=== PATIENT | male | born 1985 | race Caucasian/White ===

== ENCOUNTER 2024-10-31 07:10 | Observation (INO) | payer OTHER, SELFPAY ==
--- NOTE | ~2024-10-31 | XR_ITS ---
Supine and upright views of the abdomen Clinical history: Kidney stone Findings: Bowel gas pattern is nonspecific. No evidence for obstruction or free air. Possible 4 mm mi d right ureteral stone. Osseous structures are intact. Impression: Possible 4 mm mid right ureteral stone. Reviewed, dictated and finalized at [facility]. Impression: Possible 4 mm mid right ureteral stone.
--- NOTE | ~2024-10-31 | CT_ITS ---
Non-contrast CT scan of the Abdomen and Pelvis Clinical indication: Right flank pain Technique: 2.5 mm axial scans were obtained through the abdomen and pelvis without intravenous or or al contrast. Dose reduction technique was used on this scan by utilizing automated exposure control a nd iterative reconstruction technique. The dose-length product (DLP) was 194.05 mGy-cm. Findings: Images through the lung bases reveal no abnormalities. There is a 4.5 mm stone at the proximal right ureter (axial image 111), with mild right hydroureteron ephrosis to this level. No other stones are identified. No left hydronephrosis. The liver, spleen, pancreas, gallbladder, and adrenals appear normal. There is no aortic aneurysm. There is no evidence of bowel obstruction. Fat infiltration in the submucosal layer throughout the descending and sigmoid colon suggests sequela of chronic inflammation. Prior partial right colectomy noted. No bowel obstruction. Images through the pelvis were performed. There is no evidence of ascites or lymphadenopathy. Urinary bladder unremarkable. No pelvic mass seen. No ascites. Chronic T11 compression deformity noted. Impression: 4.5 mm proximal right ureteral stone with mild right hydronephrosis this level. Findings suggestive of chronic inflammatory change in the descending and sigmoid colon with fat infil tration of the submucosal layer. Chronic T11 compression deformity. Reviewed, dictated and finalized at [facility]. Impression: 4.5 mm proximal right ureteral stone with mild right hydronephrosis this level. Findings suggestive of chronic inflammatory change in the descending and sigmoi d colon with fat infiltration of the submucosal layer. Chronic T11 compression deformity.
--- NOTE | ~2024-10-31 | XR_ITS ---
EXAMINATION: XR retrograde pyelo w/stent RT DATE: 11/01/2024 13:24 INDICATION: Right internal ureteral stent placement TECHNIQUE: Fluoroscopic images from a right internal ureteral stent placement are submitted for amairani reich 119 seconds of fluoroscopy time. FINDINGS: There is a right double-J internal ureteral stent projecting in expected position, with proximal Hamilton loop at the level of the renal pelvis and distal loop in the pelvis within the bladder lumen. IMPRESSION: 1. Right internal ureteral stent placement. Please refer to real-time procedural findings for detai ls. Reviewed, dictated and finalized at location [facility]. IMPRESSION: 1. Right internal ureteral stent placement. Please refer to real-time procedu ral findings for details.
--- OUTSIDE RECORDS SUMMARY | 2024-10-31 07:13 | XMS_ITS | Clinical Summary ---
Author Organization [facility] Address [address] [place] [address] Care Team Providers Care Student Life Coordinator Name Role Phone None, Provider MD Primary Care Provider Unavaila ble Allergies Active Allergy Reactions Criticality Noted Date Comments Nsaids Unknown 08/19/2014 H/o Crohn's Medications STELARA 90 MG/ML injection every 28 days. 1 Active azaTHIOprine 50 MG tablet Take 2 tablets by mouth daily. 1 Active ondansetron 8 MG disintegrating tablet Take 1 tablet by mouth as needed. 1 Active Active Problems Problem Noted Date Diagnosed Date Crohn's disease ([facility]) 08/19/2014 Resolved Problems Problem Noted Date Diagnosed Date Resolved Date Screening for thyroid disorder 08/19/2014 05/10/2021 Immunizations Immunization Administration Dates Next Due MODERNA COVID-19 (12+) MRNA, LNP-S, PF, 100 MCG/ 0.5 ML DOSE 07/27/2020,06/30/2020 Social History Tobacco Use Types Packs/Day Years Used Date Smoking Tobacco: Never Smokeless Tobacco: Never Alcohol Use Standard Drinks/Week Comments Not Currently 0 (1 standard drink = 0.6 oz pur e alcohol) Sex and Gender Information Value Date Recorded Sex Assigned at Not on file Legal Sex Male 6:28 PM CDT Gender Identity Not on file Sexual Orientation Not on file Last Filed Vital Signs Vital Sign Reading Time Taken Comments Blood Pressure 118/88 05/14/2021 8:20 AM SUPPLY CHAIN DIRECTOR Pulse 96 05/14/2021 8:20 AM SUPPLY CHAIN DIRECTOR Temperature 36.2 C (97.2 F) 05/14/2021 8:20 AM SUPPLY CHAIN DIRECTOR Respiratory Rate 18 05/14/2021 8:20 AM SUPPLY CHAIN DIRECTOR Oxygen Saturation 98% 05/14/2021 8:20 AM SUPPLY CHAIN DIRECTOR Inhaled Oxygen Concentration - - Weight 66.6 kg (146 lb 14.4 oz) 05/14/2021 8:20 AM SUPPLY CHAIN DIRECTOR Height 177.2 cm (5' 9.75 ) 05/14/2021 8:20 AM CS T Body Mass Index 21.23 05/14/2021 8:20 AM SUPPLY CHAIN DIRECTOR Plan of Treatment Health Maintenance Due Date Last Done Comments Annual Physical 1989 Hepatitis C 2004 DTaP, Tdap and Td Vaccines ( 1 - Tdap) 2005 Hepatitis B Vaccines (2 of 3 - 19+ 3-dose series) 12/14/2009 11/16/2009 COVID-19 Vaccine (3 - Modern a risk series) 08/24/2020 07/27/2020, 06/30/2020 Pneumococcal Vaccine: Pediatrics (0 to 5 Years) and At-Risk Patients (6 to 49 Years) (4 of 4 - PCV20 or PCV21) 2036 01/02/2019, 07/16/2015, 07/31/2012 HPV Vaccines Aged Out No longer eligi ble based on patient's age to complete this topic Meningococcal B Vaccine Aged Out No l onger eligible based on patient's age to complete this topic Meningococcal Vaccine Aged Out No amber jd eligible based on patient's age to complete this topic RSV Immunizations Under 20 Months Aged Out No longer eligible b ased on patient's age to complete this topic Care Teams Student Life Coordinator Relationship Specialty Start Date End Date None, Provider, PCP - General 05/07/21
[2024-10-31 07:18] VITALS: BP 136/82; PULSE 78; RESP 18; TEMP 37; O2SAT 100
--- NOTE | 2024-10-31 07:21 | ED.GENADULT ---
HPI - General Adult General Chief complaint: Abdominal Pain Stated complaint: right flank pain Time Seen by Provider: 10/31/24 07:14 History of Present Illness HPI narrative: Patient 39-year-old gentleman presents emergency department chief complaint of right flank pain patient reports that he started having pain yesterday it subsided and then came back this morning the patient reports starts in the right flank area radiates to his right groin the patient states that he is unable to get comfortable in any position reports that he feels nauseated and reports that he feels very sweaty patient states that he has prior history of Crohn's but this feels different Related Data Allergies Allergy/AdvReac Type Severity Reaction Status Date / Time ibuprofen Allergy Unknown Unknown Verified 10/31/24 07:36 oxycodone AdvReac Unknown Unknown Verified 10/31/24 07:37 Review of Systems Review of Systems: A 10 system review of systems was completed on the patient and is negative except for what is stated in the HPI. Nursing and ancillary documentation was reviewed. Exam Narrative: GENERAL: Well-appearing, well-nourished, and in moderate acute pain distress. HEAD: Normocephalic, atraumatic. EYES: PERRLA and EOMI. ENT: Nares clear, no rhinorrhea or epistaxis. Mucous membranes moist. NECK: Supple. CHEST: Clear to auscultation. No respiratory distress. HEART: Regular rate and rhythm. No murmur heard. Normal peripheral pulses. ABDOMEN: Soft, nontender, nondistended, normal active bowel sounds. EXTREMITIES: Normal range of motion. No edema. SKIN: Warm, dry, no rash. NEURO: No focal deficits. Alert and oriented x3. PSYCH: Normal mood and affect. Course Vital Signs Vital signs: Vital Signs Temperature 37.0 C 10/31/24 07:18 Pulse Rate 78 10/31/24 07:18 Respiratory Rate 18 10/31/24 07:18 Blood Pressure 136/82 10/31/24 07:18 Pulse Oximetry 100 10/31/24 07:18 Oxygen Delivery Room Air 10/31/24 07:18 Temperature 37.0 C 10/31/24 07:18 Pulse Rate 75 10/31/24 09:10 Respiratory Rate 18 10/31/24 09:10 Blood Pressure 132/86 10/31/24 09:10 Pulse Oximetry 100 10/31/24 09:10 Oxygen Delivery Room Air 10/31/24 07:18 Medical Decision Making [facility] Narrative Medical decision making narrative: Differential diagnosis includes ureterolithiasis, UTI, CT scan showed evidence of 4.5 mm proximal stone on the right Urinalysis showed no evidence UTI renal function was normal The patient is require multiple doses of IV pain medication to control his pain case was discussed with Urology who will see the patient in the ER Vital Signs Vital Signs: Vital Signs Temperature 37.0 C 10/31/24 07:18 Pulse Rate 78 10/31/24 07:18 Respiratory Rate 18 10/31/24 07:18 Blood Pressure 136/82 10/31/24 07:18 Pulse Oximetry 100 10/31/24 07:18 Oxygen Delivery Room Air 10/31/24 07:18 Temperature 37.0 C 10/31/24 07:18 Pulse Rate 75 10/31/24 09:10 Respiratory Rate 18 10/31/24 09:10 Blood Pressure 132/86 10/31/24 09:10 Pulse Oximetry 100 10/31/24 09:10 Oxygen Delivery Room Air 10/31/24 07:18 Lab Data 10/31/24 07:28 10/31/24 07:28 Labs: Lab Results 10/31/24 10/31/24 Range/Units 07:28 08:52 WBC 8.1 (4.5-10.0) K/mm3 RBC 5.46 (4.6-6.20) M/mm3 Hgb 15.4 (14.0-18.0) g/dL Hct 47.0 (42.0-52.0) % MCV 86.1 (80-100) fl MCH 28.2 (26-34) pg MCHC 32.8 (32-36) g/dl RDW 13.2 (11.5-14.5) % Plt Count 196 (150-375) k/mm3 MPV 9.8 (7.4-10.4) fl Immature Gran % (Auto) 0.4 (0-0.5) % Neut % (Auto) 70.1 (45.5-73.1) % Lymph % (Auto) 20.7 (18.3-44.2) % Carlisle % (Auto) 6.5 (2.6-8.5) % Eos % (Auto) 1.9 (0-4.4) % Baso % (Auto) 0.4 (0.2-1.2) % Lymph # (Auto) 1.67 (0.9-3.2) K/mm3 Carlisle # (Auto) 0.5 (0.1-0.6) K/mm3 Eos # (Auto) 0.2 (0-0.3) K/mm3 Baso # (Auto) 0.0 (0.0-0.1) K/mm3 Abs Immat Gran (auto) 0.03 (0.00-0.031) K/mm3 Absolute Neuts (auto) 5.7 (1.3-6.7) K/mm3 Absolute Nucleated RBC 0.000 (0.0-0.012) K/mm3 Nucleated RBC % 0.0 (0.0-0.2) % Sodium 141 (137-145) mmol/L Potassium 3.6 (3.4-5.0) mmol/L Chloride 104 (98-107) mmol/L Carbon Dioxide 28 (22-30) mmol/L Anion Gap 9 (4-12) mmol/L BUN 13 (9-20) mg/dL Creatinine 1.01 (0.7-1.3) mg/dL Estim Creat Clear Calc 84 ml/min Estimated GFR > 60 (59 - ) Glucose 112 H (65-110) mg/dL Calcium 9.3 (8.4-10.2) mg/dL Total Bilirubin 0.6 (0.2-1.3) mg/dL AST 21 (17-59) U/L ALT 20 (6-50) U/L Alkaline Phosphatase 73 (38-126) U/L Total Protein 8.0 (6.3-8.2) g/dL Albumin 4.7 (3.5-5.1) g/dL Lipase 295 (23-300) U/L Urine Color Light red H (Yellow) Urine Appearance Cloudy H (Clear) Urine pH 6.0 (5.0-9.0) Ur Specific Sarita 1.030 (1.001-1.035) Urine Protein 3+ H (Negative) mg/dL Urine Glucose (UA) Trace H (Negative) mg/dL Urine Ketones Negative (Negative) mg/dL Ur Blood (Man) 3+ H (Negative) Urine Nitrate Negative (Negative) Urine Bilirubin 1+ H (Negative) Urine Urobilinogen 0.2 (<2.0) mg/dL Leukocyte Esterase Rfl Negative (Negative) YULIYA/UL Urine RBC 11-20 H (0-2) /hpf Urine WBC None seen (0-3) /hpf Ur Squamous Epith Cells Occasional (Few) /hpf Urine Bacteria 1+ H (None) /hpf Discharge Plan Discharge Clinical Impression: Ureterolithiasis Patient Disposition: Still a Patient Condition: Stable Instructions: Antibiotic Form Patient Language: Cymraes Follow-up/Referrals: PHYSICIAN,ANIMAL EVISCERATOR [Non-Staff] - Time of Disposition: 11:05
[2024-10-31] MEDS: SODIUM CHLORIDE 0.9% IV 1,000 ML 999 ML IV CONT (07:32)
--- OUTSIDE RECORDS SUMMARY | 2024-10-31 07:32 | XMS_ITS | Encounter Summary ---
Author Organization [facility] Address [address] [facility] [place] [address] Care Team Providers Care Marketing Information Coordinator Name Role Phone None, Physician Primary Care Provider Unavailabl e Reason for Visit * Reason Onset Date Comments MEDICATION REFILL 01/10/2024 Encounter Details Date Type Department Care Team (Late st Contact Info) Description 01/10/2024 Refill [facility] [place] [address] [place] [address], [place] [address] Adina Ramirez MD [address] [place] [address] [address] [place] [address] MEDICATION REFILL Social History Tobacco Use Types Packs/Day Years Used Date Smoking Tobacco: Never Smokeless Tobacco: Former Chew Quit: 05/26/2018 Alcohol Use Standard Drinks/Week Comments Not Currently 0 (1 standard drink = 0.6 oz pur e alcohol) rarely Sex and Gender Information Value Date Recorded Sex Assigned at Male 08/23/2024 9:06 AM TETRYL NITRATOR OPERATOR Legal Sex Male 1:33 PM CDT Gender Identity Male 08/23/2024 9:06 AM TETRYL NITRATOR OPERATOR Sexual Orientation Straight 08/23/2024 9: 06 AM TETRYL NITRATOR OPERATOR documented as of this encounter Functional Status * Is person deaf or have serious hearing difficulty? Answer Date of Assessment Author No 07/06/2022 1:19 PM Hamida James RN * Is person blind or have serious difficulty seeing? Answer Date of Assessment Author No 07/06/2022 1:19 PM Hamida James RN * Does person have serious difficulty walking/climbing stairs? Answer Date of Assessment Author No 07/06/2022 1:19 PM TETRYL NITRATOR OPERATOR Hamida Gallardo RN * Does person have difficulty dressing/bathing? Answer Date of Assessment Author No 07/06/2022 1:19 PM TETRYL NITRATOR OPERATOR Hamida Gallardo RN * Does person have difficulty doing errands alone? Answer Date of Assessment Author No 07/06/2022 1:19 PM TETRYL NITRATOR OPERATOR Hamida Gallardo RN documented as of this encounter Mental Status * Does person have difficulty concentrating/remembering/making decisions? Answer Entry Date Author No 07/06/2022 1:19 PM TETRYL NITRATOR OPERATOR Hamida Gallardo RN documented in this encounter Plan of Treatment Upcoming Encounters Date Type Department Care Team (Latest Contact Info) Description 04/17/2025 12:30 PM CDT Office Visit [facility] [place] [address] [place] [address] Mike Isaacs MD [address] [place] [phone] 07/02/2025 11:00 AM TETRYL NITRATOR OPERATOR Hospital Encounter [facility] [address] [place] [phone] Mike Isaacs MD [address] [place] [phone] Surgery General 07/02/2025 11:00 AM TETRYL NITRATOR OPERATOR - 07/02/2025 11:45 AM TETRYL NITRATOR OPERATOR Surgery [facility] [address] [place] [phone] Mike Isaacs MD [address] [place] [phone] COLONOSCOPY DIAGNOSTIC Scheduled Procedures Name Priority Associated Diagnoses Date/Ti me COLONOSCOPY DIAGNOSTIC Crohn's disease of both small and large intestine with other complication (HCC) 07/02/2025 11:00 AM TETRYL NITRATOR OPERATOR documented as of this encounter Goals Goal Patient Goal Type Associated Problems Recent Progress Patient-Stated? Author Safety General On track( 025 12:09 PM CDT) Viola Sharp, RN Note: Expected end date: Ongoing Interventions: Your nurse will assess your risk for falls/injury each visit Use appropriate and safe transfer methods Medication Management General On track( 025 12:09 PM CDT) Viola Sharp, RN Note: Expected end date: Ongoing Interventions: Take all medications as prescribed Let your doctor know right away about any changes in your medications documented as of this encounter Visit Diagnoses Not on filedocumented in this encounter Care Teams Marketing Information Coordinator Relationship Specialty Start Date End Date None, Physician [address] [place] [address] PCP - General 03/28/24 documented as of this encounter
--- OUTSIDE RECORDS SUMMARY | 2024-10-31 07:32 | XMS_ITS | Encounter Summary ---
Author Organization [facility] Address [address] [facility] [place] [address] Care Team Providers Care Hub Lead Name Role Phone None, Physician Primary Care Provider Unavailabl e Reason for Visit * Reason Onset Date Comments MEDICATION REFILL 05/25/2023 Encounter Details Date Type Department Care Team (Late st Contact Info) Description 05/25/2023 Refill [facility] [place] [address] [place] [address], [facility] [place] [address] Adina Ramirez MD [address] [place] [address] [address] [place] [address] MEDICATION REFILL Social History Tobacco Use Types Packs/Day Years Used Date Smoking Tobacco: Never Smokeless Tobacco: Former Chew Quit: 05/26/2018 Alcohol Use Standard Drinks/Week Comments No 0 (1 standard drink = 0.6 oz pur e alcohol) Sex and Gender Information Value Date Recorded Sex Assigned at Male 08/23/2024 9:06 AM INTEGRATION ENGINEER Legal Sex Male 1:33 PM CDT Gender Identity Male 08/23/2024 9:06 AM INTEGRATION ENGINEER Sexual Orientation Straight 08/23/2024 9: 06 AM INTEGRATION ENGINEER documented as of this encounter Functional Status [...] of Assessment Author No 07/06/2022 1:19 PM INTEGRATION ENGINEER Hamida Gallardo RN * Does person have difficulty dressing/bathing? Answer Date of Assessment Author No 07/06/2022 1:19 PM INTEGRATION ENGINEER Hamida Gallardo RN * Does person have difficulty doing errands alone? Answer Date of Assessment Author No 07/06/2022 1:19 PM INTEGRATION ENGINEER Hamida Gallardo RN documented as of this encounter Mental Status * Does person have difficulty concentrating/remembering/making decisions? Answer Entry Date Author No 07/06/2022 1:19 PM INTEGRATION ENGINEER Hamida Gallardo RN documented in this encounter Plan of Treatment Upcoming Encounters Date Type Department Care Team (Latest Contact Info) Description 04/17/2025 12:30 PM CDT Office Visit [facility] [place] [address] [place] [address] Mike Isaacs MD [address] [place] [phone] 07/02/2025 11:00 AM INTEGRATION ENGINEER Hospital Encounter [facility] [address] [place] [phone] Mike Isaacs MD [address] [place] [phone] Surgery General 07/02/2025 11:00 AM INTEGRATION ENGINEER - 07/02/2025 11:45 AM INTEGRATION ENGINEER Surgery [facility] [address] [place] [phone] Mike Isaacs MD [address] [place] [phone] COLONOSCOPY DIAGNOSTIC Scheduled Procedures Name Priority Associated Diagnoses Date/Ti me COLONOSCOPY DIAGNOSTIC Crohn's disease of both small and large intestine with other complication (HCC) 07/02/2025 11:00 AM INTEGRATION ENGINEER documented as of this encounter Goals Goal [...] on filedocumented in this encounter Care Teams Hub Lead Relationship Specialty Start Date End Date None, Physician [address] [place] [address] PCP - General 03/28/24 documented as of this encounter
--- OUTSIDE RECORDS SUMMARY | 2024-10-31 07:32 | XMS_ITS | Clinical Summary ---
Author Organization [facility] Address [address] [address] Care Team Providers Care Commercial Drone Software Developer Name Role Phone None, Physician Primary Care Provider Unavailabl e Source Comments [facility],non-owned Affiliates and Associated Physician Practices is amultiple site organization consisting of ambulatory clinics and hospital sitesin [place], [place], [place] and [place]. This disclosure is being madepursuant to the Care Everywhere program and may not contain all information available regarding this patient. Last updated 18.[facility] Allergies Active Allergy Reactions Criticality Noted Date Comments Nsaids GI Discomfort Medium 08/19/2014 H/o Crohn's Medications * Be aware that medications may not be up to date on this document. Alwaysverify current medications with the patient. ondansetron, disintegrating, (ZOFRAN ODT) 4 MG tablet Take 1 (one) tablet by mouth every 6 hours as needed for Nausea/Vomiting Allow tablet to dissolve on the tongue Active [employer] [facility] For disposal of Vitamin B12 syringes 1 Each 1 022 Active hyoscyamine (Levsin SL) 0.125 MG sublingual tablet Dissolve 1 (one) tablet under the tongue every 4 hours as needed for Spasms 60 tablet 5 024 Active risankizumab-rzaa (Skyrizi) 360 MG/2.4ML SOCTIndications:Croh n's disease with complication, unspecified gastrointestinal tract location (HCC) Inject 2.4 mL subcutaneously Every 8 Weeks 2.4 mL 6 025 Active vitamin D3 (Cholecalciferol) 25 MCG (1000 UNITS) tablet Take 1 (one) tablet by mouth once daily Active colestipol (Colestid) 1 GM tabletIndications:Di arrhea, unspecified type Take 1 (one) tablet by mouth once daily as needed 60 tablet 025 2024 Active multivitamin daily tablet Take 1 (one) tablet by mouth daily with food 2024 Disconti nued(Lis t Clean-Up ) ustekinumab (Stelara) 90 MG/ML prefilled syringeIndications:C rohn's disease with complication, unspecified gastrointestinal tract location (HCC) INJECT 1 SYRINGE SUBCUTANEOUSLY EVERY 4 WEEKS 1 mL 11 024 2024 Disconti nued(Lis t Clean-Up ) azaTHIOprine (Imuran) 50 MG tabletIndications:En counter for monitoring 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),Immunosuppress ion (HCC) Take 2 (two) tablets by mouth once daily 180 tablet 3 024 2024 Disconti nued(Lis t Clean-Up ) colestipol (Colestid) 1 GM tabletIndications:Di arrhea, unspecified type Take 1 (one) tablet by mouth once daily 90 tablet 2 024 2024 Disconti nued(Reo rder) Active Problems Problem Noted Date Diagnosed Date Crohn's disease 08/19/2014 Crohn's disease of ileum 01/02/2012 Encounters Date Type Department Care Team Description 10/25/2024 Orders Only [facility]fusion [address] [place] [phone] Mike Isaacs MD 10/10/2024 12:30 PM CDT Office Visit [facility] - GI [address] [facility], [facility] [place] [address] Mike Isaacs MD Crohn's disease of both small and large intestine with other complication (HCC) (Primary Dx); Diarrhea, unspecified type 10/10/2024 Patient Outreach [facility] [address] [place] [address] Julia Garcia, RN 10/10/2024 Travel 09/20/2024 9:15 AM CDT Procedure visit [facility] - Infusion [address] [place] [phone] Crohn's disease of both small and large intestine without complication 09/20/2024 Travel 08/23/2024 9:00 AM FIELD ARTILLERY CREWMEMBER Procedure visit [facility] - Infusion [address] [place] [phone] Crohn's disease of both small and large intestine without complication 08/23/2024 Orders Only [facility] - GI [address] [place] [phone] Julia Velasquez, OLIVIA-ROLL FORMER 08/15/2024 Telephone [facility] - GI [address] [place] [phone] Marielle Shields, institute director 08/09/2024 Telephone [facility] [address] [place] [phone] Liu Gil, academic department chair Issue 08/08/2024 Refill [facility] - GI [address] [place] [phone] Mike Isaacs MD MEDICATION REFILL 08/05/2024 Orders Only [facility] - GI [address] [place] [phone] Adina Ramirez MD 08/05/2024 Orders Only [facility] - GI [address] [place] [phone] Adina Ramirez MD 08/05/2024 Orders Only [facility] [address] [place] [address] Elsi Cleveland, MISSILE TECHNICIAN-ROLL FORMER from Last 3 Months Immunizations Immunization Administration Dates Next Due COVID PFIZER 12+YR 30MCG/0.3mL 05/17/2024,2022 COVID PFIZER BIVALENT 12Y+ 30mcg/0.3ML 03/08/2022 Covid Moderna primary monova lent 12+ yr 0.5mL 11/14/2021,06/12/2021 FLU VACCINE TRI IIV3 SPLIT P F IM (FLUVIRIN) 07/31/2012 HEP B VACCINE, ADULT 3 DOSE 11/16/2009 HEP B VACCINE, PED/ADOL 08/21/1996 INFLUENZA VACCINE, CELL CULT URE, TRIV. (FLUCELVAX TRIVALENT; 6MO+), 0.5 ML (CCIIV3) 03/27/2024 INFLUENZA VACCINE, QUADR. (A FLURIA, FLUZONE QUADRIVALENT; 6MO+) (IIV4) 03/08/2019 INFLUENZA VACCINE, QUADR. (F LUZONE; FLULAVAL; FLUARIX; AFLURIA QUADRIVALENT; 6MO+), 0.5 ML (IIV4) 03/10/2023,03/08/2022,03/27/2021,2017 PNEUMOCOCCAL PPSV23 01/02/2019,07/31/2012 Pneumococcal Pcv13 Conj 07/16/2015 TD (AGE 8-ADULT) 01/26/2001 Family History Relation Name Status Comments Father Alive Maternal Grandfather Maternal Grandmother Mother Alive Paternal Grandfather Paternal Grandmother Social History Tobacco Use Types Packs/Day Years Used Date Smoking Tobacco: Never Passive Smoke Exposure: Never Smokeless Tobacco: Former Chew Quit: 05/26/2018 Tobacco Cessation:Counseling Given: No Alcohol Use Standard Drinks/Week Comments Not Currently 0 (1 standard drink = 0.6 oz pur e alcohol) AUDIT-C Answer Date Recorded Q1: How often do you have a drink containing alcohol? Monthly or less 08/23/2024 Q2: How many drinks containi ng alcohol do you have on a typical day when you are drinking? Patient does not drink Q3: How often do you have si x or more drinks on one occasion? Never 08/23/2024 Overall Financial Resource Strain (CARDIA) Answe r Date Recorded How hard is it for you to pa y for the very basics like food, housing, medical care, and heating? Not very hard 08/23/2024 PHQ-2 Answer Date Recorded Patient Health Questionnaire-2 Score 0 08/23/2024 [facility] [place] [facility] - Occupational Stress Questionnaire Answer Date Recorded Do you feel stress - tense, restless, nervous, or anxious, or unable to sleep at night because your mind is troubled all the time - these days? Not at all 08/23/2024 Hunger Vital Sign Answer Date Recorded Within the past 12 months, y ou worried that your food would run out before you got the money to buy more. Never true 08/23/19 25 Within the past 12 months, t he food you bought just didn't last and you didn't have money to get more. Never true 08/23/2024 PRAPARE - Transportation Answer Date Re corded In the past 12 months, has l ack of transportation kept you from medical appointments or from getting medications? No 07/28 In the past 12 months, has l ack of transportation kept you from meetings, work, or from getting things needed for daily living? No 08/23/2024 Housing Stability Vital Sign Answer [place] e Recorded In the last 12 months, was t here a time when you were not able to pay the mortgage or rent on time? No 08/23/2024 In the past 12 months, how m any times have you moved where you were living? 1 08/23/2024 At any time in the past 12 m [facility], were you homeless or living in a alf (including now)? No 08/23/2024 Education Answer Date Recorded What is the highest level of school you have completed or the highest degree you have received? 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, [place]) 08/23/2024 Sex and Gender Information Value Date Recorded Sex Assigned at Male 08/23/2024 9:06 AM FIELD ARTILLERY CREWMEMBER Legal Sex Male 1:33 PM CDT Gender Identity Male 08/23/2024 9:06 AM FIELD ARTILLERY CREWMEMBER Sexual Orientation Straight 08/23/2024 9: 06 AM FIELD ARTILLERY CREWMEMBER Last Filed Vital Signs Vital Sign Reading Time Taken Comments Blood Pressure 132/89 10/10/2024 12:18 PM CDT Pulse 85 10/10/2024 12:18 PM CDT Temperature 36.6 C (97.8 F) 10/10/2024 12:18 PM CDT Respiratory Rate 14 09/20/2024 8:23 AM CDT Oxygen Saturation 100% 10/10/2024 12:18 PM CDT Inhaled Oxygen Concentration - - Weight 68.6 kg (151 lb 3.2 oz) 10/10/2024 12:18 PM CDT Height 175.3 cm (5' 9 ) 10/10/2024 12:18 PM CDT Body Mass Index 22.33 10/10/2024 12:18 PM CDT Plan of Treatment Upcoming Encounters Date Type Department Care Team (Latest Contact Info) Description 04/17/2025 12:30 PM CDT Office Visit [facility] - GI [address] [place] [address] Mike Isaacs MD [address] [place] [phone] 07/02/2025 11:00 AM FIELD ARTILLERY CREWMEMBER Hospital Encounter [facility] [address] [place] [phone] Mike Isaacs MD [address] [place] [phone] Surgery General 07/02/2025 11:00 AM FIELD ARTILLERY CREWMEMBER - 07/02/2025 11:45 AM FIELD ARTILLERY CREWMEMBER Surgery [facility] [address] [place] [phone] Mike Isaacs MD [address] [place] [phone] COLONOSCOPY DIAGNOSTIC Scheduled Procedures Name Priority Associated Diagnoses Date/Ti me COLONOSCOPY DIAGNOSTIC Crohn's disease of both small and large intestine with other complication (HCC) 07/02/2025 11:00 AM FIELD ARTILLERY CREWMEMBER Health Maintenance Due Date Last Done Comments HIV SCREENING 2001 HEPATITIS C SCREENING 04/18/2004 ZOSTER VACCINE (1 of 2) 2005 HEPATITIS B VACCINE (3 of 3 - 3-dose series) 01/11/2010 11/16/2009, 08/21/1996 DTAP/TDAP/TD VACCINES (2 - Td or Tdap) 01/26/2011 01/26/2001 COVID-19 VACCINE (8 - Moderna risk season) 2024 05/17/2024, 04/14/2023, 03/08/2022, Additional history exists PNEUMOCOCCAL VACCINE (4 of 4 - PCV20 or PCV21) 2036 01/02/2019, 07/16/2015, 07/31/2012 INFLUENZA VACCINE Completed 03/27/2024, , 03/08/2022, Additional history exists DEPRESSION SCREENING Completed 08/23/2024 HIB VACCINE Aged Out No longer eligi ble based on patient's age to complete this topic HPV VACCINE Aged Out No longer eligi ble based on patient's age to complete this topic MENINGOCOCCAL (Group B) VACCINE SHARED DECISION-MAKING Aged Out No longer eligible based on patient's age to complete this topic MENINGOCOCCAL GROUPS A/C/Y/W VACCINE Aged Out No longer eligible based on patient's age to complete this topic Goals Goal Patient Goal Type Associated Problems Recent Progress Patient-Stated? Author Safety General On track( 025 12:09 PM CDT) Viola Sharp, WILLIAM Note: Expected end date: Ongoing Interventions: Your nurse will assess your risk for falls/injury each visit Use appropriate and safe transfer methods Medication Management General On track( 025 12:09 PM CDT) Viola Sharp, WILLIAM Note: Expected end date: Ongoing Interventions: Take all medications as prescribed Let your doctor know right away about any changes in your medications Procedures Procedure Name Priority Date/Time Associated Diagnosis Comments QUANTIFERON-TB GOLD PLUS 1-TUBE 08/23/2024 9:28 AM FIELD ARTILLERY CREWMEMBER VITAMIN D 25-HYDROXY 08/23/2024 9:28 AM FIELD ARTILLERY CREWMEMBER VITAMIN B12 08/23/2024 9:28 AM FIELD ARTILLERY CREWMEMBER FOLATE 08/23/2024 9:28 AM FIELD ARTILLERY CREWMEMBER HEPATITIS B SURFACE ANTIGEN W RFLX CONFIRMATION 08/23/2024 9:28 AM FIELD ARTILLERY CREWMEMBER C-REACTIVE PROTEIN 08/23/2024 9: 28 AM FIELD ARTILLERY CREWMEMBER CBC W AUTO DIFFERENTIAL 08/23/2024 9:28 AM FIELD ARTILLERY CREWMEMBER COMPREHENSIVE METABOLIC PANEL 08/23/2024 9:28 AM FIELD ARTILLERY CREWMEMBER IRON + TIBC + FERRITIN 9:28 AM FIELD ARTILLERY CREWMEMBER from Last 3 Months Results * QUANTIFERON-TB GOLD PLUS 1-TUBE (08/23/2024 9:28 AM FIELD ARTILLERY CREWMEMBER) [facility] QuantiFERON TB Gold Plus NEGATIVE NEGATIVE [facility] Comment: Negative test result. M. tuberculosis complex infection unlikely. NIL 0.03 IU/mL [facility] MITOGEN MINUS NIL RESULT >10.00 IU/mL [facility] TB1-NIL 0.04 IU/mL [facility] TB2-NIL 0.13 IU/mL [facility] Comment: The Nil tube value reflects the background interferon gamma immune response of the patient's blood sample. This value has been subtracted from the patient's displayed TB and Mitogen results. Lower than expected results with the Mitogen tube prevent false-negative Quantiferon readings by detecting a patient with a potential immune suppressive condition and/or suboptimal pre-analytical specimen handling. The TB1 Antigen tube is coated with the M. tuberculosis-specific antigens designed to elicit responses from TB antigen primed CD4+ helper T-lymphocytes. The TB2 Antigen tube is coated with the M. tuberculosis-specific antigens designed to elicit responses from TB antigen primed CD4+ helper and CD8+ cytotoxic T-lymphocytes. For additional information, please refer to https://education.[employer].HOSTEX/faq/VJW573 (This link is being provided for informational/ educational purposes only.) REPORT COMMENT: SPLIT 06/25/2024 FROM [id number], [id number] Test Performed at: [facility] [place] [address] [address] [place] [address] RICH COMER MD 08/23/2024 9:28 AM FIELD ARTILLERY CREWMEMBER 08/23/2024 9:29 AM FIELD ARTILLERY CREWMEMBER Julia Velasquez MISSILE TECHNICIAN-ROLL FORMER LAB - CHEMISTRY ORDERABLES Final Result Performing Organization Address [facility] [place] [address] * (ABNORMAL) IRON + TIBC + FERRITIN (08/23/2024 9:28 AM FIELD ARTILLERY CREWMEMBER) Pathologist [facility] Iron 61 50 - 180 mcg/dL [facility] TIBC 380 250 - 425 mcg/dL (calc) [facility] % Saturation 16(L) 20 - 48 % (calc) [facility] Ferritin 48 38 - 380 ng/mL [facility] Comment: Test Performed at: [address] [place] [address] RICH COMER MD 08/23/2024 9:28 AM FIELD ARTILLERY CREWMEMBER 08/23/2024 9:29 AM FIELD ARTILLERY CREWMEMBER Julia Velasquez MISSILE TECHNICIAN-[facility] LAB - CHEMISTRY ORDERABLES Final Result Performing Organization Address [facility] de Phone Number [place] [phone] * C-REACTIVE PROTEIN (08/23/2024 9:28 AM FIELD ARTILLERY CREWMEMBER) Pathologist [facility] C-Reactive Protein <3.0 <8.0 mg/L [facility] Comment: Test Performed at: [place] [id number] RICH COMER MD 08/23/2024 9:28 AM FIELD ARTILLERY CREWMEMBER 08/23/2024 9:29 AM FIELD ARTILLERY CREWMEMBER Julia Velasquez [facility] - CHEMISTRY ORDERABLES Final Result Performing Organization Address [facility] [place] [address] * (ABNORMAL) VITAMIN D 25-HYDROXY (08/23/2024 9:28 AM FIELD ARTILLERY CREWMEMBER) Pathologist [facility] Vitamin D, 25 Hydroxy 26(L) 30 - 100 ng/mL [facility] Comment: Vitamin D Status 25-OH Vitamin D: Deficiency: <20 ng/mL Insufficiency: 20 - 29 ng/mL Optimal: > or = 30 ng/mL For 25-OH Vitamin D testing on patients on D2-supplementation and patients for whom quantitation of D2 and D3 fractions is required, the QuestAssureD(TM) 25-OH VIT D, (D2,D3), LC/MS/MS is recommended: order code 29999 (patients >2yrs). See Note 1 Note 1 For additional information, please refer to http://education.[employer].HOSTEX/faq/PFA896 (This link is being provided for informational/ educational purposes only.) Test Performed at: [facility] [id number] [facility] [place] [address] RICH COMER MD 08/23/2024 9:28 AM FIELD ARTILLERY CREWMEMBER 08/23/2024 9:29 AM FIELD ARTILLERY CREWMEMBER Julia Velasquez MISSILE TECHNICIAN-ROLL FORMER LAB - CHEMISTRY ORDERABLES Final Result Performing Organization Address City/State/[facility] [place] Phone Number [facility] [address] [place] [address] * CBC WITH DIFFERENTIAL (08/23/2024 9:28 AM FIELD ARTILLERY CREWMEMBER) White Blood Cell Count 5.8 3.8 - 10.8 Thousand/u L [facility] RBC 5.40 4.20 - 5.80 Million/uL [facility] Hemoglobin 15.6 13.2 - 17.1 g/dL [facility] Hematocrit 48.1 38.5 - 50.0 % [facility] MCV 89.1 80.0 - 100.0 fL [facility] MCH 28.9 27.0 - 33.0 pg [facility] MCHC 32.4 32.0 - 36.0 g/dL [facility] Comment: For adults, a slight decrease in the calculated MCHC value (in the range of 30 to 32 g/dL) is most likely not clinically significant; however, it should be interpreted with caution in correlation with other red cell parameters and the patient's clinical condition. RDW 14.0 11.0 - 15.0 % [facility] Platelet Count 288 140 - 400 Thousand/u L [facility] MPV 9.7 7.5 - 12.5 fL [facility] Neutrophil Absolute 3927 1500 - 7800 cells/uL [facility] Lymphocytes Absolute 1282 850 - 3900 cells/uL [facility] Absolute Monocytes 476 200 - 950 cells/uL [facility] Eosinophils Absolute 87 15 - 500 cells/uL [facility] Basophils Absolute 29 0 - 200 cells/uL [facility] Granulocytes % 67.7 % [facility] Lymphocytes % 22.1 % [facility] Monocytes % 8.2 % [facility] Eosinophils % 1.5 % [facility] Basophils % 0.5 % [facility] Comment: Test Performed at: [place] [address] [facility] [place] [address] RICH COMER MD 08/23/2024 9:28 AM FIELD ARTILLERY CREWMEMBER 08/23/2024 9:29 AM FIELD ARTILLERY CREWMEMBER us Julia Velasquez MISSILE TECHNICIAN-ROLL FORMER LAB - HEMATOLOGY ORDERABLES Final Result [facility] [address] [place] [address] * COMPREHENSIVE METABOLIC PANEL (08/23/2024 9:28 AM FIELD ARTILLERY CREWMEMBER) Glucose 99 65 - 99 mg/dL [facility] Comment: Fasting reference interval BUN 10 7 - 25 mg/dL [facility] Creatinine 0.72 0.60 - 1.26 mg/dL [facility] eGFR by Cystatin C 120 > OR = 60 mL/min/1. 73m2 [facility] BUN/Creatinine Ratio SEE NOTE: 6 - 22 (calc) [facility] Comment: Not Reported: BUN and Creatinine are within reference range. Sodium 137 135 - 146 mmol/L [facility] Potassium 4.9 3.5 - 5.3 mmol/L [facility] Chloride 103 98 - 110 mmol/L [facility] CO2 28 20 - 32 mmol/L [facility] Calcium 9.2 8.6 - 10.3 mg/dL [facility] Protein Total 7.3 6.1 - 8.1 g/dL [facility] Albumin 4.5 3.6 - 5.1 g/dL [facility] Globulin Total 2.8 1.9 - 3.7 g/dL (calc) [facility] Albumin/Globulin Ratio 1.6 1.0 - 2.5 (calc) [facility] Bilirubin Total 0.4 0.2 - 1.2 mg/dL [facility] Alkaline Phosphatase 79 36 - 130 U/L [facility] AST 33 10 - 40 U/L [facility] Comment: Results slightly increased due to hemolysis. ALT 42 9 - 46 U/L [facility] Comment: Test Performed at: [place] [id number] [place] [address] RICH COMER MD 08/23/2024 9:28 AM FIELD ARTILLERY CREWMEMBER 08/23/2024 9:29 AM FIELD ARTILLERY CREWMEMBER Julia CAMARGO LAB - CHEMISTRY ORDERABLES Final Result Performing Organization Address [facility] [place] [address] * HEPATITIS B SURFACE ANTIGEN W RFLX CONFIRMATION (08/23/2024 9:28 AM FIELD ARTILLERY CREWMEMBER) [facility] Hepatitis B Virus Surface Antigen NON-REACT TERESA NON-REACT TERESA [facility] Comment: For additional information, please refer to http://education.[employer]/faq/HGS816 (This link is being provided for informational/ educational purposes only.) Test Performed at: [place] [address] RICH COMER MD Confirmation [facility] Comment: Test Performed at: [address] [place] [address] RICH COMER MD 08/23/2024 9:28 AM FIELD ARTILLERY CREWMEMBER 08/23/2024 9:29 AM FIELD ARTILLERY CREWMEMBER Julia CAMARGO LAB - CHEMISTRY ORDERABLES Final Result Performing Organization Address [facility] [place] [address] * FOLATE (08/23/2024 9:28 AM FIELD ARTILLERY CREWMEMBER) [facility] Folate 10.4 ng/mL [facility] Comment: Reference Range Low: <3.4 Borderline: 3.4-5.4 Normal: >5.4 Test Performed at: [address] [place] [address] RICH COMER MD 08/23/2024 9:28 AM FIELD ARTILLERY CREWMEMBER 08/23/2024 9:29 AM FIELD ARTILLERY CREWMEMBER Julia Coke-Attewell MISSILE TECHNICIAN-ROLL FORMER LAB - CHEMISTRY ORDERABLES Final Result Performing Organization Address [facility] de Phone Number [facility] [address] [place] [address] * VITAMIN B12 (08/23/2024 9:28 AM FIELD ARTILLERY CREWMEMBER) Vitamin B12 357 200 - 1100 pg/mL [facility] Comment: Please Note: Although the reference range for vitamin B12 is 200-1100 pg/mL, it has been reported that between 5 and 10% of patients with values between 200 and 400 pg/mL may experience neuropsychiatric and hematologic abnormalities due to occult B12 deficiency; less than 1% of patients with values above 400 pg/mL will have symptoms. Test Performed at: [place] [id number] [place] [address] RICH COMER MD 08/23/2024 9:28 AM FIELD ARTILLERY CREWMEMBER 08/23/2024 9:29 AM FIELD ARTILLERY CREWMEMBER Julia Velasquez MISSILE TECHNICIAN-ROLL FORMER LAB - CHEMISTRY ORDERABLES Final Result Performing Organization Address [facility] de Phone Number [facility] [address] [place] [address] from Last 3 Months Insurance [employer] - [address] [place] [id number] Care Teams Commercial Drone Software Developer Relationship Specialty Start Date End Date None, Physician [address] [place] [address] PCP - General 03/28/24
[2024-10-31] MEDS: HYDROmorphone HCL INJ (*CRX) 2 MG/ML VIAL 1 MG IV PUSH ×7 (07:33→21:42)
[2024-10-31] MEDS: ONDANSETRON INJ 4 MG/2 ML VIAL IV PUSH ×3 (07:33→15:10)
--- NOTE | 2024-10-31 07:34 | PC.NURSE ---
pt attempted to provide urine sample and was unable to provide enough to send
[2024-10-31 07:35] LABS: Basophils Percent Auto 0.4 % (0.2-1.2); Eosinophils Absolute Auto 0.2 K/mm3 (0-0.3); Eosinophils Percent Auto 1.9 % (0-4.4); Hemoglobin 15.4 g/dL (14.0-18.0); Immature Granulocyte Absolute 0.03 K/mm3 (0.00-0.031); Immature Granulocyte Percent A 0.4 % (0-0.5); Lymphocytes Absolute Auto 1.67 K/mm3 (0.9-3.2); Lymphocytes Percent Auto 20.7 % (18.3-44.2); Mean Corpuscular HGB Conc 32.8 g/dl (32-36); Mean Corpuscular Hemoglobin 28.2 pg (26-34); Mean Corpuscular Volume 86.1 fl (80-100); Mean Platelet Volume 9.8 fl (7.4-10.4); Monocytes Absolute Auto 0.5 K/mm3 (0.1-0.6); Monocytes Percent Auto 6.5 % (2.6-8.5); Neutrophils Absolute Auto 5.7 K/mm3 (1.3-6.7); Neutrophils Percent Auto 70.1 % (45.5-73.1); Platelet Count Result 196 k/mm3 (150-375); Red Blood Count 5.46 M/mm3 (4.6-6.20); Red Cell Distribution Width 13.2 % (11.5-14.5); White Blood Count 8.1 K/mm3 (4.5-10.0)
[2024-10-31 07:44] LABS: Alanine Aminotransferase 20 U/L (6-50); Albumin Level 4.7 g/dL (3.5-5.1); Alkaline Phosphatase 73 U/L (38-126); Anion Gap 9 mmol/L (4-12); Aspartate Amino Transferase 21 U/L (17-59); Bilirubin,Total 0.6 mg/dL (0.2-1.3); Blood Urea Nitrogen 13 mg/dL (9-20); Calcium 9.3 mg/dL (8.4-10.2); Carbon Dioxide 28 mmol/L (22-30); Chloride 104 mmol/L (98-107); Estimated CRCL calculation 84 ml/min; Estimated Glomerular Filt Rate > 60; Glucose 112 mg/dL (65-110); Lipase 295 U/L (23-300); Potassium 3.6 mmol/L (3.4-5.0); Sodium 141 mmol/L (137-145)
[2024-10-31] MEDS: TAMSULOSIN HCL 0.4 MG CAPSULE PO (09:06)
[2024-10-31 09:09] LABS: Color Urine Light Red (Yellow)
[2024-10-31 09:10] VITALS: BP 132/86; PULSE 75; RESP 18; O2SAT 100
[2024-10-31 09:10] LABS: Appearance Urine Cloudy (Clear); Bilirubin Urine 1+ (Negative); Blood Urine 3+ (Negative); Glucose Urine UA Trace mg/dL (Negative); Ketones Urine Negative (Negative); Nitrate Urine Negative (Negative); Protein Urine 3+ mg/dL (Negative)
[2024-10-31 09:11] LABS: Add Urine Microscopic? YES; Leukocyte Esterase Ur Negative LEU/UL (Negative); Urobilinogen Urine 0.2 mg/dL (<2.0)
[2024-10-31 11:00] LABS: Bacteria Urine 1+ /hpf; Squamous Epithelial Cell Urine Occasional /hpf (Few); WBC Urine None seen /hpf (0-3)
[2024-10-31 11:15] VITALS: BP 114/82; PULSE 83; RESP 19; O2SAT 100
[2024-10-31] MEDS: SODIUM CHLORIDE 0.9% IV 1,000 ML 125 ML IV CONT ×2 (11:16→19:55)
--- OUTSIDE RECORDS SUMMARY | 2024-10-31 11:56 | XMS_ITS | Clinical Summary ---
Author Organization [facility] Yingying Licai Address [address] [place] [address] Care Team Providers Care Backbreaker Name Role Phone None, Physician Primary Care Provider Unavailabl e Source Comments [facility]ing[facility],non-owned Affiliates and Associated Physician Practices is amultiple site organization consisting of ambulatory clinics and hospital sitesin [place], [place], [place] and [place]. This disclosure is being madepursuant to the Care Everywhere program and may not contain all information available regarding this patient. Last updated 18.[facility] Yingying Licai Allergies Active Allergy Reactions Criticality Noted Date [...] dissolve on the tongue Active Sharps Container [facility] For disposal of Vitamin B12 syringes 1 [...] Physician Group - Infusion [address] [place] [phone] Mike Isaacs MD 10/10/2024 12:30 PM CDT Office Visit [facility] [address] [facility], [facility] [place] [address] Mike Isaacs MD Crohn's disease of both small and large intestine with other complication (HCC) (Primary Dx); Diarrhea, unspecified type 10/10/2024 Patient Outreach [facility] [address] [place] [address] Julia Garcia, RN 10/10/2024 Travel 09/20/2024 9:15 AM CDT Procedure visit [facility] [address] [place] [phone] Crohn's disease of both small and large intestine without complication 09/20/2024 Travel 08/23/2024 9:00 AM ARCHITECT Procedure visit [facility] [address] [place] [phone] Crohn's disease of both small and large intestine without complication 08/23/2024 Orders Only [facility] [address] [place] [phone] Julia Velasquez, OLIVIA-CORPORATE HUMAN RESOURCES MANAGER 08/15/2024 Telephone [facility] [address] [place] [phone] Marielle Shields, math and science division chair 08/09/2024 Telephone [facility] RAD [facility] [address] [place] [phone] Liu Gil, batch plant operator Issue 08/08/2024 Refill [facility] [address] [place] [phone] Mike Isaacs MD MEDICATION REFILL 08/05/2024 Orders Only [facility] [address] [place] [phone] Adina Ramirez MD 08/05/2024 Orders Only [facility] [address] [place] [phone] Adina Ramirez MD 08/05/2024 Orders Only [facility] [address] [place] [address] Elsi Cleveland, VICE PRESIDENT PREC[employer] MARK[employer] INSIGHTS-CORPORATE HUMAN RESOURCES MANAGER from Last 3 Months Immunizations Immunization Administration [...] Recorded Patient Health Questionnaire-2 Score 0 08/23/2024 [facility] [place] of Occupat ional Health - Occupational Stress [...] any time in the past 12 m [facility], were you homeless or living in a prison (including now)? No 08/23/2024 Education Answer Date Recorded What is the highest level of school you have completed or the highest degree you have received? 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, SUPERVISOR [employer], [place]) 08/23/2024 Sex and Gender Information Value Date Recorded Sex Assigned at Male 08/23/2024 9:06 AM ARCHITECT Legal Sex Male 1:33 PM CDT Gender Identity Male 08/23/2024 9:06 AM ARCHITECT Sexual Orientation Straight 08/23/2024 9: 06 AM ARCHITECT Last Filed Vital Signs Vital Sign Reading [...] Description 04/17/2025 12:30 PM CDT Office Visit [facility] [address] [facility] [place] [address] Mike Isaacs MD [address] [place] [phone] 07/02/2025 11:00 AM ARCHITECT Hospital Encounter [facility] [address] [place] [phone] Mike Isaacs MD [address] [place] [phone] Surgery General 07/02/2025 11:00 AM ARCHITECT - 07/02/2025 11:45 AM ARCHITECT Surgery [facility] [address] [place] [phone] Mike Isaacs MD [address] [place] [phone] COLONOSCOPY DIAGNOSTIC Scheduled Procedures Name Priority Associated Diagnoses Date/Ti me COLONOSCOPY DIAGNOSTIC Crohn's disease of both small and large intestine with other complication (HCC) 07/02/2025 11:00 AM ARCHITECT Health Maintenance Due Date Last Done Comments [...] QUANTIFERON-TB GOLD PLUS 1-TUBE 08/23/2024 9:28 AM ARCHITECT VITAMIN D 25-HYDROXY 08/23/2024 9:28 AM ARCHITECT VITAMIN B12 08/23/2024 9:28 AM ARCHITECT FOLATE 08/23/2024 9:28 AM ARCHITECT HEPATITIS B SURFACE ANTIGEN W RFLX CONFIRMATION 08/23/2024 9:28 AM ARCHITECT C-REACTIVE PROTEIN 08/23/2024 9: 28 AM ARCHITECT CBC W AUTO DIFFERENTIAL 08/23/2024 9:28 AM ARCHITECT COMPREHENSIVE METABOLIC PANEL 08/23/2024 9:28 AM ARCHITECT IRON + TIBC + FERRITIN 9:28 AM ARCHITECT from Last 3 Months Results * QUANTIFERON-TB GOLD PLUS 1-TUBE (08/23/2024 9:28 AM ARCHITECT) [facility] QuantiFERON TB Gold Plus NEGATIVE NEGATIVE [facility] [...] T-lymphocytes. For additional information, please refer to https://education.[employer].Kahua/faq/CWF408 (This link is being provided for informational/ educational purposes only.) REPORT COMMENT: SPLIT 06/25/2024 FROM [id number], [id number] Test Performed at: [facility] [facility] [address] [address] [address] RICH COMER MD 08/23/2024 9:28 AM ARCHITECT 08/23/2024 9:29 AM ARCHITECT Julia Velasquez VICE PRESIDENT PREC[employer] MARKET INSIGHTS-CORPORATE HUMAN RESOURCES MANAGER LAB - CHEMISTRY ORDERABLES Final Result Performing Organization Address [facility] [place] [address] * (ABNORMAL) IRON + TIBC + FERRITIN (08/23/2024 9:28 AM ARCHITECT) Pathologist [facility] Iron 61 50 - 180 mcg/dL [facility] TIBC 380 250 - 425 mcg/dL (calc) [facility] % Saturation 16(L) 20 - 48 % (calc) [facility] Ferritin 48 38 - 380 ng/mL [facility] Comment: Test Performed at: [facility] [place] [place] [address] RICH COMER MD 08/23/2024 9:28 AM ARCHITECT 08/23/2024 9:29 AM ARCHITECT Julia Velasquez VICE PRESIDENT PRECISION MARKET INSIGHTS-[facility] LAB - CHEMISTRY ORDERABLES Final Result Performing Organization Address [facility] de Phone Number [place] [phone] * C-REACTIVE PROTEIN (08/23/2024 9:28 AM ARCHITECT) Pathologist [facility] C-Reactive Protein <3.0 <8.0 mg/L [facility] Comment: Test Performed at: [facility] [address] RICH COMER MD 08/23/2024 9:28 AM ARCHITECT 08/23/2024 9:29 AM ARCHITECT Julia Velasquez VICE PRESIDENT [facility] LAB - CHEMISTRY ORDERABLES Final Result Performing Organization Address [facility] [place] [address] * (ABNORMAL) VITAMIN D 25-HYDROXY (08/23/2024 9:28 AM ARCHITECT) Pathologist [facility] Vitamin D, 25 Hydroxy 26(L) 30 - 100 ng/mL [facility] Comment: Vitamin D Status 25-OH Vitamin D: Deficiency: <20 ng/mL Insufficiency: 20 - 29 ng/mL Optimal: > or = 30 ng/mL For 25-OH Vitamin D testing on patients on D2-supplementation and patients for whom quantitation of D2 and D3 fractions is required, the QuestAssureD(TM) 25-OH VIT D, (D2,D3), LC/MS/MS is recommended: order code 48630 (patients >2yrs). See Note 1 Note 1 For additional information, please refer to http://education.[employer].Kahua/faq/XUL197 (This link is being provided for informational/ educational purposes only.) Test Performed at: [facility] [address] [place] [address] RICH COMER MD 08/23/2024 9:28 AM ARCHITECT 08/23/2024 9:29 AM ARCHITECT Julia Velasquez VICE PRESIDENT [employer] INSIGHTS-CORPORATE HUMAN RESOURCES MANAGER LAB - CHEMISTRY ORDERABLES Final Result Performing Organization Address City/State/[facility] Co or Phone Number [facility] [address] [place] [address] * CBC WITH DIFFERENTIAL (08/23/2024 9:28 AM ARCHITECT) White Blood Cell Count 5.8 3.8 - [...] 0.5 % [facility] Comment: Test Performed at: [facility] [address] [place] [address] RICH COMER MD 08/23/2024 9:28 AM ARCHITECT 08/23/2024 9:29 AM ARCHITECT us Julia Velasquez VICE PRESIDENT [employer] MARK[employer] INSIGHTS-CORPORATE HUMAN RESOURCES MANAGER LAB - HEMATOLOGY ORDERABLES Final Result [facility] [address] [place] [address] * COMPREHENSIVE METABOLIC PANEL (08/23/2024 9:28 AM ARCHITECT) Glucose 99 65 - 99 mg/dL [facility] [...] 46 U/L [facility] Comment: Test Performed at: [facility] [address] [place] [address] RICH COMER MD 08/23/2024 9:28 AM ARCHITECT 08/23/2024 9:29 AM ARCHITECT Julia CAMARGO LAB - CHEMISTRY ORDERABLES Final Result Performing Organization Address [facility] [place] [address] * HEPATITIS B SURFACE ANTIGEN W RFLX CONFIRMATION (08/23/2024 9:28 AM ARCHITECT) [facility] Hepatitis B Virus Surface Antigen NON-REACT TERESA NON-REACT TERESA [facility] Comment: For additional information, please refer to http://education.Genemation/faq/TQM141 (This link is being provided for informational/ educational purposes only.) Test Performed at: [employer] [place] [address] RICH COMER MD Confirmation [facility] Comment: Test Performed at: [place] [address] RICH COMER MD 08/23/2024 9:28 AM ARCHITECT 08/23/2024 9:29 AM ARCHITECT Julia CAMARGO LAB - CHEMISTRY ORDERABLES Final Result Performing Organization Address [facility] [place] [address] * FOLATE (08/23/2024 9:28 AM ARCHITECT) [facility] Folate 10.4 ng/mL [facility] Comment: Reference Range Low: <3.4 Borderline: 3.4-5.4 Normal: >5.4 Test Performed at: [place] [address] RICH COMER MD 08/23/2024 9:28 AM ARCHITECT 08/23/2024 9:29 AM ARCHITECT Julia Coke-[place] VICE PRESIDENT PREC[employer] MARK[employer] INSIGHTS-CORPORATE HUMAN RESOURCES MANAGER LAB - CHEMISTRY ORDERABLES Final Result Performing Organization Address [facility] de Phone Number [facility] [address] [place] [address] * VITAMIN B12 (08/23/2024 9:28 AM ARCHITECT) Vitamin B12 357 200 - 1100 pg/mL [...] pg/mL will have symptoms. Test Performed at: [facility] [address] [place] [address] RICH COMER MD 08/23/2024 9:28 AM ARCHITECT 08/23/2024 9:29 AM ARCHITECT Julia Velasquez VICE PRESIDENT PREC[employer] MARK[employer] INSIGHTS-CORPORATE HUMAN RESOURCES MANAGER LAB - CHEMISTRY ORDERABLES Final Result Performing Organization Address [facility] de Phone Number [facility] [address] [place] [address] from Last 3 Months Insurance [employer] - [address] [place] [id number] Care Teams Backbreaker Relationship Specialty Start Date End Date None, Physician [address] [place] [address] PCP - General 03/28/24
--- OUTSIDE RECORDS SUMMARY | 2024-10-31 11:56 | XMS_ITS | Encounter Summary ---
Author Organization [facility] Address [address] [place] [place] [address] Care Team Providers Care Towboat Pilot Name Role Phone None, Physician Primary Care Provider Unavailabl e Reason for Visit * Reason Onset Date Comments MEDICATION REFILL 01/10/2024 Encounter Details Date Type Department Care Team (Late st Contact Info) Description 01/10/2024 Refill [facility] [address] [place] [address], [place] [address] Adina Ramirez MD [address] [place] [address] [address] [place] [address] MEDICATION REFILL Social History Tobacco Use Types Packs/Day Years Used Date Smoking Tobacco: Never Smokeless Tobacco: Former Chew Quit: 05/26/2018 Alcohol Use Standard Drinks/Week Comments Not Currently 0 (1 standard drink = 0.6 oz pur e alcohol) rarely Sex and Gender Information Value Date Recorded Sex Assigned at Male 08/23/2024 9:06 AM CIRCUIT BOARD DRAFTER Legal Sex Male 1:33 PM CDT Gender Identity Male 08/23/2024 9:06 AM CIRCUIT BOARD DRAFTER Sexual Orientation Straight 08/23/2024 9: 06 AM CIRCUIT BOARD DRAFTER documented as of this encounter Functional Status [...] of Assessment Author No 07/06/2022 1:19 PM CIRCUIT BOARD DRAFTER Hamida Gallardo RN * Does person have difficulty dressing/bathing? Answer Date of Assessment Author No 07/06/2022 1:19 PM CIRCUIT BOARD DRAFTER Hamida Gallardo RN * Does person have difficulty doing errands alone? Answer Date of Assessment Author No 07/06/2022 1:19 PM CIRCUIT BOARD DRAFTER Hamida Gallardo RN documented as of this encounter Mental Status * Does person have difficulty concentrating/remembering/making decisions? Answer Entry Date Author No 07/06/2022 1:19 PM CIRCUIT BOARD DRAFTER Hamida Gallardo RN documented in this encounter Plan of Treatment Upcoming Encounters Date Type Department Care Team (Latest Contact Info) Description 04/17/2025 12:30 PM CDT Office Visit [facility] - GI [address] [place] [address] Mike Isaacs MD [address] [place] [phone] 07/02/2025 11:00 AM CIRCUIT BOARD DRAFTER Hospital Encounter [facility] ENDOSCOPY [address] [place] [phone] Mike Isaacs MD [address] [place] [phone] Surgery General 07/02/2025 11:00 AM CIRCUIT BOARD DRAFTER - 07/02/2025 11:45 AM CIRCUIT BOARD DRAFTER Surgery [facility] [address] [place] [phone] Mike Isaacs MD [address] [place] [phone] COLONOSCOPY DIAGNOSTIC Scheduled Procedures Name Priority Associated Diagnoses Date/Ti me COLONOSCOPY DIAGNOSTIC Crohn's disease of both small and large intestine with other complication (HCC) 07/02/2025 11:00 AM CIRCUIT BOARD DRAFTER documented as of this encounter Goals Goal [...] on filedocumented in this encounter Care Teams Towboat Pilot Relationship Specialty Start Date End Date None, Physician [address] [place] [address] PCP - General 03/28/24 documented as of this encounter
--- OUTSIDE RECORDS SUMMARY | 2024-10-31 11:56 | XMS_ITS | Clinical Summary ---
Author Organization [facility] Address [address] [place] [address] Care Team Providers Care Cfd Engineer Name Role Phone None, Provider MD Primary [...] Problem Noted Date Diagnosed Date Crohn's disease ([facility]) 08/19/2014 Resolved Problems Problem Noted Date Diagnosed [...] Comments Blood Pressure 118/88 05/14/2021 8:20 AM CHEMICAL DEPENDENCY COUNSELOR Pulse 96 05/14/2021 8:20 AM CHEMICAL DEPENDENCY COUNSELOR Temperature 36.2 C (97.2 F) 05/14/2021 8:20 AM CHEMICAL DEPENDENCY COUNSELOR Respiratory Rate 18 05/14/2021 8:20 AM CHEMICAL DEPENDENCY COUNSELOR Oxygen Saturation 98% 05/14/2021 8:20 AM CHEMICAL DEPENDENCY COUNSELOR Inhaled Oxygen Concentration - - Weight 66.6 kg (146 lb 14.4 oz) 05/14/2021 8:20 AM CHEMICAL DEPENDENCY COUNSELOR Height 177.2 cm (5' 9.75 ) 05/14/2021 8:20 AM CS T Body Mass Index 21.23 05/14/2021 8:20 AM CHEMICAL DEPENDENCY COUNSELOR Plan of Treatment Health Maintenance Due Date [...] age to complete this topic Care Teams Cfd Engineer Relationship Specialty Start Date End Date None, Provider, PCP - General 05/07/21
--- OUTSIDE RECORDS SUMMARY | 2024-10-31 11:56 | XMS_ITS | Encounter Summary ---
Author Organization [facility] Address [address] [facility] [place] [address] Care Team Providers Care Licensed Insurance Sales Agent Name Role Phone None, Physician Primary Care Provider Unavailabl e Reason for Visit * Reason Onset Date Comments MEDICATION REFILL 05/25/2023 Encounter Details Date Type Department Care Team (Late st Contact Info) Description 05/25/2023 Refill [facility] [address] [place] [address], [facility] [place] [address] Adina Ramirez MD [address] [place] [address] [address] [place] [address] MEDICATION REFILL Social History Tobacco Use Types Packs/Day Years Used Date Smoking Tobacco: Never Smokeless Tobacco: Former Chew Quit: 05/26/2018 Alcohol Use Standard Drinks/Week Comments No 0 (1 standard drink = 0.6 oz pur e alcohol) Sex and Gender Information Value Date Recorded Sex Assigned at Male 08/23/2024 9:06 AM FAMILY SUPPORT COORDINATOR Legal Sex Male 1:33 PM CDT Gender Identity Male 08/23/2024 9:06 AM FAMILY SUPPORT COORDINATOR Sexual Orientation Straight 08/23/2024 9: 06 AM FAMILY SUPPORT COORDINATOR documented as of this encounter Functional Status [...] of Assessment Author No 07/06/2022 1:19 PM FAMILY SUPPORT COORDINATOR Hamida Gallardo RN * Does person have difficulty dressing/bathing? Answer Date of Assessment Author No 07/06/2022 1:19 PM FAMILY SUPPORT COORDINATOR Hamida Gallardo RN * Does person have difficulty doing errands alone? Answer Date of Assessment Author No 07/06/2022 1:19 PM FAMILY SUPPORT COORDINATOR Hamida Gallardo RN documented as of this encounter Mental Status * Does person have difficulty concentrating/remembering/making decisions? Answer Entry Date Author No 07/06/2022 1:19 PM FAMILY SUPPORT COORDINATOR Hamida Gallardo RN documented in this encounter Plan of Treatment Upcoming Encounters Date Type Department Care Team (Latest Contact Info) Description 04/17/2025 12:30 PM CDT Office Visit [facility] - GI [address] [place] [address] Mike Isaacs MD [address] [place] [phone] 07/02/2025 11:00 AM FAMILY SUPPORT COORDINATOR Hospital Encounter [facility] [address] [place] [phone] Mike Isaacs MD [address] [place] [phone] Surgery General 07/02/2025 11:00 AM FAMILY SUPPORT COORDINATOR - 07/02/2025 11:45 AM FAMILY SUPPORT COORDINATOR Surgery [facility] [address] [place] [phone] Mike Isaacs MD [address] [place] [phone] COLONOSCOPY DIAGNOSTIC Scheduled Procedures Name Priority Associated Diagnoses Date/Ti me COLONOSCOPY DIAGNOSTIC Crohn's disease of both small and large intestine with other complication (HCC) 07/02/2025 11:00 AM FAMILY SUPPORT COORDINATOR documented as of this encounter Goals Goal [...] on filedocumented in this encounter Care Teams Licensed Insurance Sales Agent Relationship Specialty Start Date End Date None, Physician [address] [place] [address] PCP - General 03/28/24 documented as of this encounter
[2024-10-31 11:59] VITALS: BMI 22.1
--- NOTE | 2024-10-31 12:05 | ADMGEN ---
This patient, Alden Dye, was admitted to [facility] Surg Room 324-01. Patient/family oriented to hospital policies and general routines including ID bracelet, bed and alarms, visiting hours, pain management, procedures, bathroom and other care routines, personal items, smoking policy, room service/diet, and visiting hours. Information on how to activate the Rapid Response Team has been discussed. Patient/Family are encouraged to report perceived risks to care and to ask questions if they do not understand what they are told or what they should do.
[2024-10-31 12:20] VITALS: BP 129/80; PULSE 70; RESP 16; TEMP 36.1; O2SAT 95
--- NOTE | 2024-10-31 16:27 | PM.IMHP ---
H&P: HPI History of Present Illness Date/Time: 10/31/24 16:27 <Rohini Fuller APRN - Last Filed: 10/31/24 19:49> Chief Complaint: This is a pleasant 63-year-old male presenting with right-sided abdominal pain and flank pain as well as nausea. Patient reports he has had some trouble urinating. Patient states this started a few days ago and has gotten worse. Patient does have a history of kidney stones. Recent CT abdomen and pelvis with contrast completed on 10/30/2024 showed a severe right-sided hydronephrosis due to a large stone obstructing the right UPJ. The size of the stone is noted to be 8 x 14 mm. There is a 2nd 8 mm stone noted in the lower pole of the right kidney. No left-sided stones are noted. <Rohini Fuller APRN - Last Filed: 10/31/24 19:49> Right flank pain <Samson oJnes MD - Last Filed: 10/31/24 19:07> Narrative: 39-year-old male without prior significant history of urolithiasis presents the emergency department with intermittent, progressively severe right flank pain. This has been associated with nausea and diaphoresis although no fevers or gross hematuria has been noted. patient reports that he started having pain yesterday it subsided and then came back this morning the patient reports starts in the right flank area radiates to his right groin the patient states that he is unable to get comfortable in any position reports that he feels nauseated and reports that he feels very sweaty. <Rohini Fuller APRN - Last Filed: 10/31/24 19:49> Correction to above: 31-year-old male without prior significant history of urolithiasis presents the emergency department with intermittent, progressively severe right flank pain. This has been associated with nausea and diaphoresis although no fevers or gross hematuria has been noted. <Samson Jones MD - Last Filed: 10/31/24 19:07> Review of Systems Review of Systems: All systems reviewed & are unremarkable except as noted in HPI and below <Rohini Fuller APRN - Last Filed: 10/31/24 19:49> All systems reviewed & are unremarkable except as noted in HPI and below <Samson Jones MD - Last Filed: 10/31/24 19:07> [facility] Social History Social History: Social History Smoking status: Never smoker Alcohol intake: never Substance use: never Do You Feel Safe in your Home?: Yes Lack of Transportation: No Lack of Food: Never True Current Housing: I Have Housing Concerned About Future Housing: No Difficulty Paying Gas/Electric Bills: No Difficulty Paying for Meds: No Currently Unemployed: No Education: Decline to Answer Difficulty w/ Childcare or Family Care: No Spiritual care concerns: No <Rohini Fuller APRN - Last Filed: 10/31/24 19:49> Meds Home Medications and Allergies Home medications: Home Medications ?Medication ?Instructions ?Recorded ?Confirmed ?Type risankizumab-rzaa 360 mg/2.4 mL 360 mg subcut .[id number] 10/31/24 10/31/24 History (150 mg/mL) subcut wearable injector (Skyrizi) <Rohini Fuller APRN - Last Filed: 10/31/24 19:49> Allergies/Adverse reactions: Allergies Allergy/AdvReac Type Severity Reaction Status Date / Time No Known Allergies Allergy Verified 10/31/24 12:11 <Rohini Fuller APRN - Last Filed: 10/31/24 19:49> Vital Signs Vital Signs - 24 hr 10/31/24 07:18 10/31/24 09:10 10/31/24 11:15 Temperature 98.6 F Pulse Rate 78 75 83 Respiratory Rate 18 18 19 Blood Pressure 136/82 132/86 114/82 Pulse Oximetry 100 100 100 Oxygen Delivery Room Air 10/31/24 12:20 10/31/24 12:24 Temperature 97.0 F L Pulse Rate 70 Respiratory Rate 16 Blood Pressure 129/80 Pulse Oximetry 95 Oxygen Delivery Room Air <Rohini Fuller APRN - Last Filed: 10/31/24 19:49> Exam Const: General: in distress moderate and uncomfortable <Rohini Fuller APRN - Last Filed: 10/31/24 19:49> General: no acute distress <Samson Jones MD - Last Filed: 10/31/24 19:07> Other: right flank <Rohini FullerOLIVIA - Last Filed: 10/31/24 19:49> HENMT: Mouth: Yes moist mucous membranes <Rohini FullerOLIVIA - Last Filed: 10/31/24 19:49> Eyes: General: appearance normal, both eyes and all related structures <Rohini FullerOLIVIA - Last Filed: 10/31/24 19:49> Neck: Neck: supple <Rohini GrajedaOLIVIA baker - Last Filed: 10/31/24 19:49> Resp: Effort & Inspection: normal respiratory effort <Rohini GrajedadominikdangOLIVIA - Last Filed: 10/31/24 19:49> Effort & Inspection: normal respiratory effort <Samson Jones MD - Last Filed: 10/31/24 19:07> Cardio: Rhythm: regular rhythm <Rohini FullerOLIVIA - Last Filed: 10/31/24 19:49> GI: Inspection: non-distended <Samson Jones MD - Last Filed: 10/31/24 19:07> GI Palp: No abdominal tenderness and No Guarding due to palpation present (GI) <Samson Jones MD - Last Filed: 10/31/24 19:07> Auscultation: normal bowel sounds <Samson Jones MD - Last Filed: 10/31/24 19:07> : Male General Exam: Yes tenderness (right cva) <Rohini GrajedadominikdangOLIVIA - Last Filed: 10/31/24 19:49> Psych: Mental Status: mental status grossly normal <Rohini GrajedaOLIVIA baker - Last Filed: 10/31/24 19:49> H&P: Results Labs Labs: Short CBC 10/31/24 Range/Units 07:28 WBC 8.1 (4.5-10.0) K/mm3 Hgb 15.4 (14.0-18.0) g/dL Hct 47.0 (42.0-52.0) % Plt Count 196 (150-375) k/mm3 BMP 10/31/24 07:28 Sodium 141 Potassium 3.6 Chloride 104 Carbon Dioxide 28 BUN 13 Creatinine 1.01 Glucose 112 H Calcium 9.3 Liver Function 10/31/24 Range/Units 07:28 Total Bilirubin 0.6 (0.2-1.3) mg/dL AST 21 (17-59) U/L ALT 20 (6-50) U/L Alkaline Phosphatase 73 (38-126) U/L Albumin 4.7 (3.5-5.1) g/dL Urine 10/31/24 Range/Units 08:52 Urine Color Light red H (Yellow) Urine Appearance Cloudy H (Clear) Urine pH 6.0 (5.0-9.0) Ur Specific [place] 1.030 (1.001-1.035) Urine Protein 3+ H (Negative) mg/dL Urine Glucose (UA) Trace H (Negative) mg/dL <Rohini Fuller APRN - Last Filed: 10/31/24 19:49> Assessment and Plan Assessment and plan (1) Ureterolithiasis: Code(s): N20.1 - Calculus of ureter <Rohini Fuller APRN - Last Filed: 10/31/24 19:49> Status: Acute <Rohini Fuller APRN - Last Filed: 10/31/24 19:49> Assessment and Plan: Patient being admitted for hydration and analgesics today. Unfortunately, there is no time in the OR for any type of intervention today. Check KUB in the morning and be prepared for ureteroscopy with stone extraction, possible laser lithotripsy, retrograde pyelogram and stent placement <Samson Jones MD - Last Filed: 10/31/24 19:07>
[2024-10-31] MEDS: PROCHLORPERAZINE EDISYLATE 10 MG/2 ML VIAL 5 MG IV PUSH (17:13)
[2024-10-31 21:41] VITALS: BP 112/70; PULSE 72; RESP 14; TEMP 36.3; O2SAT 92
[2024-11-01] VITALS (8 sets, daily range): BP systolic 92–127; BP diastolic 56–76; PULSE 65–86; RESP 14–20; TEMP 36.1–36.9; O2SAT 94–100
[2024-11-01] MEDS: HYDROmorphone HCL INJ (*CRX) 2 MG/ML VIAL 1 MG IV PUSH ×4 (01:05→11:45)
[2024-11-01] MEDS: SODIUM CHLORIDE 0.9% IV 1,000 ML 125 ML IV CONT (03:46)
[2024-11-01 05:56] LABS: Basophils Percent Auto 0.2 % (0.2-1.2); Eosinophils Percent Auto 0.2 % (0-4.4); Hematocrit 38.6 % (42.0-52.0); Hemoglobin 12.8 g/dL (14.0-18.0); Immature Granulocyte Absolute 0.04 K/mm3 (0.00-0.031); Immature Granulocyte Percent A 0.3 % (0-0.5); Lymphocytes Absolute Auto 0.81 K/mm3 (0.9-3.2); Lymphocytes Percent Auto 6.2 % (18.3-44.2); Mean Corpuscular HGB Conc 33.2 g/dl (32-36); Mean Corpuscular Hemoglobin 28.6 pg (26-34); Mean Corpuscular Volume 86.4 fl (80-100); Mean Platelet Volume 10.4 fl (7.4-10.4); Monocytes Absolute Auto 1.1 K/mm3 (0.1-0.6); Monocytes Percent Auto 8.6 % (2.6-8.5); Neutrophils Absolute Auto 11.1 K/mm3 (1.3-6.7); Neutrophils Percent Auto 84.5 % (45.5-73.1); Platelet Count Result 127 k/mm3 (150-375); Red Blood Count 4.47 M/mm3 (4.6-6.20); Red Cell Distribution Width 13.2 % (11.5-14.5); White Blood Count 13.1 K/mm3 (4.5-10.0)
[2024-11-01 06:08] LABS: Anion Gap 6 mmol/L (4-12); Blood Urea Nitrogen 13 mg/dL (9-20); Carbon Dioxide 23 mmol/L (22-30); Chloride 108 mmol/L (98-107); Estimated CRCL calculation 66 ml/min; Estimated Glomerular Filt Rate > 60; Glucose 112 mg/dL (65-110); Sodium 137 mmol/L (137-145)
[2024-11-01] MEDS: LACTATED RINGERS 1,000 ML 30 ML IV CONT ×2 (11:30→13:20)
--- NOTE | 2024-11-01 11:40 | WPDHPUPDATE1 ---
History and Physical Update Update Date/Time: 11/01/24 11:40 History and Physical has been reviewed, including an updated exam of the patient. There are NO changes in the patient's condition. Risks, benefits, and alternatives have been discussed and questions answered. Patient agrees to proceed with procedure.
--- NOTE | 2024-11-01 11:42 | WPDANESEPPF ---
Anes - Initial Pre Proc Eval Procedure: Operation Date: 11/01/24 12:00 Proposed Procedures p Cystoscopy, Right Ureteroscopy, Possible Right Retrograde Pyelogram, Possible Right Stone Extraction, Possible Right Stent Placement, Possible Holmium Laser - Samson Jones MD Date/Time: 11/01/24 11:42 Surgeon: Samson Jones MD Pre Op Diagnosis: Ureterolithiasis Patient Data Age: 39 Gender: M Height: 1.75 m Weight: 68 kg Last Vital Signs Temp 36.1 C L 11/01/24 06:00 Pulse 83 11/01/24 06:00 Resp 14 11/01/24 06:00 BP 100/56 L 11/01/24 06:00 Pulse Ox 94 11/01/24 06:00 O2 Del Method Room Air 10/31/24 20:00 Allergies Allergy/AdvReac Type Severity Reaction Status Date / Time No Known Allergies Allergy Verified 10/31/24 12:11 Home Medications ?Medication ?Instructions ?Recorded ?Confirmed ?Type risankizumab-rzaa 360 mg/2.4 mL 360 mg subcut .[id number] 10/31/24 10/31/24 History (150 mg/mL) subcut wearable injector (Rossy) Laboratory Tests 11/01/24 05:47 WBC 13.1 H K/mm3 (4.5-10.0) RBC 4.47 L M/mm3 (4.6-6.20) Hgb 12.8 L g/dL (14.0-18.0) Hct 38.6 L % (42.0-52.0) MCV 86.4 fl (80-100) MCH 28.6 pg (26-34) MCHC 33.2 g/dl (32-36) RDW 13.2 % (11.5-14.5) Plt Count 127 L k/mm3 (150-375) MPV 10.4 fl (7.4-10.4) Immature Gran % (Auto) 0.3 % (0-0.5) Neut % (Auto) 84.5 H % (45.5-73.1) Lymph % (Auto) 6.2 L % (18.3-44.2) [place] % (Auto) 8.6 H % (2.6-8.5) Eos % (Auto) 0.2 % (0-4.4) Baso % (Auto) 0.2 % (0.2-1.2) Lymph # (Auto) 0.81 L K/mm3 (0.9-3.2) [place] # (Auto) 1.1 H K/mm3 (0.1-0.6) Eos # (Auto) 0.0 K/mm3 (0-0.3) Baso # (Auto) 0.0 K/mm3 (0.0-0.1) Abs Immat Gran (auto) 0.04 H K/mm3 (0.00-0.031) Absolute Neuts (auto) 11.1 H K/mm3 (1.3-6.7) Absolute Nucleated RBC 0.000 K/mm3 (0.0-0.012) Nucleated RBC % 0.0 % (0.0-0.2) Sodium 137 mmol/L (137-145) Potassium 4.0 mmol/L (3.4-5.0) Chloride 108 H mmol/L (98-107) Carbon Dioxide 23 mmol/L (22-30) Anion Gap 6 mmol/L (4-12) BUN 13 mg/dL (9-20) Creatinine 1.30 mg/dL (0.7-1.3) Estim Creat Clear Calc 66 ml/min Estimated GFR > 60 (59 - ) Glucose 112 H mg/dL (65-110) Calcium 8.0 L mg/dL (8.4-10.2) Patient hx anesthesia problems: none Family hx anesthesia problems: none Results Review: All pre-operative results and documents have been reviewed as part of the pre-operative evaluation. [facility] Social History Social History Smoking status: Never smoker Alcohol intake: never Substance use: never Do You Feel Safe in your Home?: Yes Lack of Transportation: No Lack of Food: Never True Current Housing: I Have Housing Concerned About Future Housing: No Difficulty Paying Gas/Electric Bills: No Difficulty Paying for Meds: No Currently Unemployed: No Education: Decline to Answer Difficulty w/ Childcare or Family Care: No Spiritual care concerns: No Anes - Eval Final PreProcedure Day of Procedure 11/01/24 11:42 Patient weight: normal Heart: regular rate and rhythm Lungs: clear to auscultation Airway: Mallampati scale class II Neurological: alert and oriented Last oral intake: >/= 8 hours ASA classification: III Emergent: no Anesthetic plan: proceed Anesthesia type and monitoring: general LMA and standard monitoring Results Review: All pre-operative results and documents have been reviewed as part of the pre-operative evaluation. Informed Consent: The patient's anesthetic plan and its attendant risks and benefits were discussed with the patient/family/POA. Questions were solicited and answers provided to the satisfaction of the patient/family/POA.
[2024-11-01] MEDS: ceFAZolin 2 GM/D5W 50 ML 2 GM/50 ML BAG IVPB (12:23)
[2024-11-01] MEDS: LIDOCAINE 2% GEL UROJET 10 ML PKG MUCOUS MEM (12:36)
--- NOTE | 2024-11-01 13:24 | W.PM.PROC2 ---
Procedure Note - Detailed Date of Procedure 11/01/24 Pre-op Diagnosis Right mid ureteral stone Post-op Diagnosis Other (Right mid mid ureteral stricture without obvious intraluminal stone) Procedure Performed Cystoscopy, right ureteroscopy with stent placement, right retrograde pyelography Surgeon Samson Jones MD Anesthesia General Description of Procedure Patient is brought the operative suite was prepped draped in routine sterile fashion while in dorsal lithotomy position after the uneventful induction of a general LMA anesthetic. Cystoscopy was undertaken with a 19 F rigid cystoscope. His bladder was normal without mucosal hyperemia and there is no intravesical foreign body or neoplasm. His urethra showed no signs of stricture and no significant prostatic hyperplasia. The ureteral orifices were carefully inspected and found to have a single orthotopic ureteral orifice bilaterally. A 0.035 in glidewire was advanced into the right renal pelvis the distal ureter was dilated an 8 F 10 F dilator. First attempted ureteroscopy with a 7.5 F flexible digital ureteral scope. He has a area of stricture (densely fibrotic tissue) in the right mid ureter at L4-L5. This does not allow passage of flexible ureteral scope until I placed another wire fluids to at some rigid ED to pass the scope. Once past the stricture I was unable to find any intraluminal ureteral stones. I carefully inspected the entire collecting system after retrograde pyelography to ensure inspection of all calices. Inspected not only the ureter proximal to the stricture but also distal end again no identifiable ureteral stones. Do not know if the stone could perhaps be either imbedded in the wall or extraluminal but it, by today's examination was not identifiable. I did dilate this stricture with a 4 cm ureteral balloon at 12 atmospheres for 4 minutes and placed a 6 F variable length stent. Think I will plan to remove the stent with repeat ureteroscopy in approximately 2 weeks. Urine Output 200
[2024-11-01] MEDS: oxyCODONE HCL (*CRX) 5 MG TAB IR PO (14:34)
--- NOTE | 2024-11-01 16:41 | P.DS_ITS ---
DS: Admitting Diagnosis Discharge Date 11/01/2024 Admitting Diagnosis Right mid ureteral stone DS: Discharge Diagnosis Discharge Diagnosis (1) Ureterolithiasis: Code(s): N20.1 - Calculus of ureter Status: Acute (2) Ureteral stricture: Code(s): N13.5 - Crossing vessel and stricture of ureter without hydronephrosis Status: Acute DS: Summary Hospital Course Hospital Course: pleasant young man who was admitted with acute right renal colic and imaging suggesting a 5 mm right mid ureteral calculus. Scheduling limitations in the OR precluded endoscopic evaluation until the day following admission. At that time he was found to have a fairly dense right mid ureteral stricture with ureteral edema. Despite exhaustive evaluation of the entire ureter and collecting system I was unable to identify a stone. I believe the stone is either impacted and edematous wall of the ureter or perhaps extruded outside the ureter. I did place ureteral stent and he immediately felt better. He was discharged the day of this procedure. I will make arrangements for follow-up in 7-10 days at which time we will repeat CT imaging. When taking out the stent I will repeat right ureteroscopy. Time Spent with Patient Time attestation: Total time spent providing and/or coordinating discharge services: DS: Data Data Completed and Pending Labs on day of discharge: Labs from last 24 hours 11/01/24 05:47 WBC 13.1 H RBC 4.47 L Hgb 12.8 L Hct 38.6 L MCV 86.4 MCH 28.6 MCHC 33.2 RDW 13.2 Plt Count 127 L MPV 10.4 Immature Gran % (Auto) 0.3 Neut % (Auto) 84.5 H Lymph % (Auto) 6.2 L [place] % (Auto) 8.6 H Eos % (Auto) 0.2 Baso % (Auto) 0.2 Lymph # (Auto) 0.81 L [place] # (Auto) 1.1 H Eos # (Auto) 0.0 Baso # (Auto) 0.0 Abs Immat Gran (auto) 0.04 H Absolute Neuts (auto) 11.1 H Absolute Nucleated RBC 0.000 Nucleated RBC % 0.0 Sodium 137 Potassium 4.0 Chloride 108 H Carbon Dioxide 23 Anion Gap 6 BUN 13 Creatinine 1.30 Estim Creat Clear Calc 66 Estimated GFR > 60 Glucose 112 H Calcium 8.0 L Discharge Plan Discharge Attending physician on discharge: Samson Jones Discharging Clinician: Samson Jones Patient Disposition: Home Activity: other - see discharge instructions Diet: other - see discharge instructions Discharge Instructions: 1) Activity: no driving or important decisions x24 hours. 2) Diet: resume your normal, pre-admission diet. 3) Follow-up: 1-2 weeks / call for appointment ([phone]). Patient Instructions: Antibiotic Form Patient Language: Irish Stand Alone Forms: General Discharge Information Follow-up/Referrals: Samson Jones MD [Physician] - Discharge Medications: New hydrocodone-acetaminophen 5-325 mg tablet 1 - 2 tablet PO Q6H PRN (Reason: pain) Qty: 20 0RF Continued Skyrizi 360 mg/2.4 mL (150 mg/mL) wearable injector 360 mg SUBCUT .t2onvry Patient Comments: pt not due for another dose for awhile, not sure when last taken Date of admission: 10/31/24 11:04 Primary Care Provider: UNKNOWN,DOCTOR Admitting Provider: Samson Jones Attending physician on admission: Samson Jones Condition: Stable
== END 2024-11-01 16:00 | disposition home or self-care (01) ==
LOC: ANHED 11:05 → ANH3MEDSUR 11:54
PROVIDERS: Nurse Practitioner Family; Admitting Provider Urology; Emergency Provider Emergency Medicine; Visit Provider Urology
PROC: (CPT 52352; principal; 2024-11-01 12:00)
DX: N20.1 Calculus of ureter (principal); N13.5 Crossing vessel and stricture of ureter without hydronephrosis
CPT/HCPCS: 52332; 36415; 74018; 74176; 74420; 80048; 80053; 81001; 83690; 85025; 96361; 96374; 96375; 96376; 99285; A9270; C1726; C1758; C1769; C1894; C2617; G0378; J0690; J0780; J1100; J1171; J2003; J2250; J2405; J2704; J3010; J7030; J7120; Q9966

== ENCOUNTER 2024-11-13 10:03 | Day surgery (SDC) | payer OTHER, SELFPAY ==
[2024-11-13] VITALS (8 sets, daily range): BP systolic 84–112; BP diastolic 53–73; PULSE 54–69; RESP 14–20; TEMP 36.1–36.9; O2SAT 99–100; BMI 21.9
--- NOTE | ~2024-11-13 | CT_ITS ---
EXAMINATION: CT abdomen pelvis wo con DATE: 11/13/2024 10:54 INDICATION: Right ureteral stone TECHNIQUE: Computed tomography (CT) of the abdomen and pelvis was performed without intravenous contr ast. Automated exposure control and iterative reconstruction technique were employed. The dose-length product was 185.18 mGy-cm. COMPARISON: 10/31/2024 FINDINGS: Lung bases are clear. Heart size is normal. No pericardial or pleural effusion. Liver, gallbladder, s pleen, pancreas, left kidney and bilateral adrenal glands are normal. There is a right internal ureteral stent in expected position with loops formed in an upper pole jan x of the right kidney and in the normal bladder. The previously seen 3-4 mm proximal right ureteral s tone has refluxed into a lower pole calyx of the left kidney. No stones seen alongside the stent in t he right ureter and no hydronephrosis. Postoperative change of prior right hemicolectomy with ileocolic anastomosis in the right abdomen. Th ere is fatty infiltration of the wall of the descending and sigmoid colon with relatively haustral pa ttern to the sigmoid colon which suggests sequela of chronic colitis. No bowel obstruction. Small fat -containing umbilical hernia. No free intraperitoneal gas or fluid. No pathologically enlarged abdomi nal or pelvic lymphadenopathy. Chronic T11 compression fracture with 25% anterior vertebral body heig ht loss. Minimal likely physiologic anterior wedging at T12 and L1. IMPRESSION: 1. Prior 304 mm proximal ureteral stone as reflux into a lower pole calyx of the right kidney. No rig ht hydronephrosis with newly placed right internal ureteral stent in expected position. 2. Fatty infiltration of the wall of the descending and sigmoid colon suggestive of sequela of chroni c colitis. Reviewed, dictated and finalized at location A. IMPRESSION: 1. Prior 304 mm proximal ureteral stone as reflux into a lower pole calyx of th e right kidney. No right hydronephrosis with newly placed right internal ureter al stent in expected position. 2. Fatty infiltration of the wall of the descending and sigmoid colon suggestiv e of sequela of chronic colitis.
--- OUTSIDE RECORDS SUMMARY | 2024-11-13 10:39 | XMS_ITS | Clinical Summary ---
Author Organization [facility] Address [address] [place] [address] Care Team Providers Care Human Resources Technician Name Role Phone None, Physician Primary Care Provider Unavailabl e Source Comments [facility],non-owned Affiliates and Associated Physician Practices is amultiple site organization consisting of ambulatory clinics and hospital sitesin [place], [place], [place] and [place]. This disclosure is being madepursuant to the Care Everywhere program and may not contain all information available regarding this patient. Last updated 18.[facility] Allergies Active Allergy Reactions Criticality Noted Date [...] dissolve on the tongue Active [employer] [facility] For disposal of Vitamin B12 syringes 1 Each 1 02/02/20 22 Active hyoscyamine (Levsin SL) 0.125 MG sublingual tablet Dissolve 1 (one) tablet under the tongue every 4 hours as needed for Spasms 60 tablet 5 01/30/20 24 Active risankizumab-rzaa (Skyrizi) 360 MG/2.4ML SOCTIndications:Binder Coverstitch hn's disease with complication, unspecified gastrointestinal tract location (HCC) Inject 2.4 mL subcutaneously Every 8 Weeks 2.4 mL 6 08/08/19 25 Active vitamin D3 (Cholecalciferol) 25 MCG (1000 UNITS) tablet Take 1 (one) tablet by mouth once daily Active colestipol (Colestid) 1 GM tabletIndications:D iarrhea, unspecified type Take 1 (one) tablet by mouth once daily as needed 60 tablet 10/11/19 25 2024 Active Active Problems Problem Noted Date Diagnosed Date Crohn's disease 08/19/2014 Crohn's disease of ileum 01/02/2012 Encounters Date Type Department Care Team Description 10/25/2024 Orders Only [facility] [address] [place] [address] Mike Isaacs MD 10/10/2024 12:30 PM CDT Office Visit [facility] [address] [place] [phone] Mike Isaacs MD Crohn's disease of both small and large intestine with other complication (HCC) (Primary Dx); Diarrhea, unspecified type 10/10/2024 Patient Outreach [facility] [address] [place] [address] Julia Garcia RN 10/10/2024 Travel 09/20/2024 9:15 AM CDT Procedure visit [facility] - [facility]fusion Formerly [facility], [address] [place] [address] Crohn's disease of both small and large intestine without complication 09/20/2024 Travel 08/23/2024 9:00 AM TOPOGRAPHIC COMPUTATOR Procedure visit [facility] - Infusion [address] [place] [address] Crohn's disease of both small and large intestine without complication 08/23/2024 Orders Only [facility] [address] [place] [phone] Julia Velasquez, OLIVIA-CARE ADMINISTRATIVE TECH from Last 3 Months Immunizations Immunization Administration [...] Recorded Patient Health Questionnaire-2 Score 0 08/23/2024 [place] [facility] [employer] - Occupational Stress [...] any time in the past 12 m [facility], were you homeless or living in a custodial (including now)? No 08/23/2024 Education Answer Date Recorded What is the highest level of school you have completed or the highest degree you have received? 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, SALES/MARKETING, [place]) 08/23/2024 Sex and Gender Information Value Date Recorded Sex Assigned at Male 08/23/2024 9:06 AM TOPOGRAPHIC COMPUTATOR Legal Sex Male 1:33 PM CDT Gender Identity Male 08/23/2024 9:06 AM TOPOGRAPHIC COMPUTATOR Sexual Orientation Straight 08/23/2024 9: 06 AM TOPOGRAPHIC COMPUTATOR Last Filed Vital Signs Vital Sign Reading [...] Description 04/17/2025 12:30 PM CDT Office Visit [facility] - GI [address] [facility], [place] [address] Mike Isaacs MD [address] [place] [phone] 07/02/2025 11:00 AM TOPOGRAPHIC COMPUTATOR Hospital Encounter [facility] [address] [place] [phone] Mike Isaacs MD [address] [place] [phone] Surgery General 07/02/2025 11:00 AM TOPOGRAPHIC COMPUTATOR - 07/02/2025 11:45 AM TOPOGRAPHIC COMPUTATOR Surgery [facility] [address] [place] [phone] Mike Isaacs MD [address] [place] [phone] COLONOSCOPY DIAGNOSTIC Scheduled Procedures Name Priority Associated Diagnoses Date/Ti me COLONOSCOPY DIAGNOSTIC Crohn's disease of both small and large intestine with other complication (HCC) 07/02/2025 11:00 AM TOPOGRAPHIC COMPUTATOR Health Maintenance Due Date Last Done Comments [...] QUANTIFERON-TB GOLD PLUS 1-TUBE 08/23/2024 9:28 AM TOPOGRAPHIC COMPUTATOR VITAMIN D 25-HYDROXY 08/23/2024 9:28 AM TOPOGRAPHIC COMPUTATOR VITAMIN B12 08/23/2024 9:28 AM TOPOGRAPHIC COMPUTATOR FOLATE 08/23/2024 9:28 AM TOPOGRAPHIC COMPUTATOR HEPATITIS B SURFACE ANTIGEN W RFLX CONFIRMATION 08/23/2024 9:28 AM TOPOGRAPHIC COMPUTATOR C-REACTIVE PROTEIN 08/23/2024 9: 28 AM TOPOGRAPHIC COMPUTATOR CBC W AUTO DIFFERENTIAL 08/23/2024 9:28 AM TOPOGRAPHIC COMPUTATOR COMPREHENSIVE METABOLIC PANEL 08/23/2024 9:28 AM TOPOGRAPHIC COMPUTATOR IRON + TIBC + FERRITIN 9:28 AM TOPOGRAPHIC COMPUTATOR from Last 3 Months Results * QUANTIFERON-TB GOLD PLUS 1-TUBE (08/23/2024 9:28 AM TOPOGRAPHIC COMPUTATOR) [facility] QuantiFERON TB Gold Plus NEGATIVE [...] T-lymphocytes. For additional information, please refer to https://education.TSCA.CamSemi/faq/PGH925 (This link is being provided for informational/ educational purposes only.) REPORT COMMENT: SPLIT 06/25/2024 FROM [id number], [id number] Test Performed at: [employer] [facility] [address] [facility] [address] RICH COMER MD 08/23/2024 9:28 AM TOPOGRAPHIC COMPUTATOR 08/23/2024 9:29 AM TOPOGRAPHIC COMPUTATOR Julia Velasquez ARC CUTTER PLASMA ARC-CARE ADMINISTRATIVE TECH LAB - CHEMISTRY ORDERABLES Final Result Performing Organization Address [facility] de Phone Number [facility] [phone] [place] [address] * (ABNORMAL) IRON + TIBC + FERRITIN (08/23/2024 9:28 AM TOPOGRAPHIC COMPUTATOR) Pathologist [facility] Iron 61 50 - 180 mcg/dL [facility] TIBC 380 250 - 425 mcg/dL (calc) [facility] % Saturation 16(L) 20 - 48 % (calc) [facility] Ferritin 48 38 - 380 ng/mL [facility] Comment: Test Performed at: [facility] [address] RICH COMER MD 08/23/2024 9:28 AM TOPOGRAPHIC COMPUTATOR 08/23/2024 9:29 AM TOPOGRAPHIC COMPUTATOR Julia Velasquez [facility] - CHEMISTRY ORDERABLES Final Result Performing Organization Address [facility] de Phone Number [facility] [id number] [place] [address] * C-REACTIVE PROTEIN (08/23/2024 9:28 AM TOPOGRAPHIC COMPUTATOR) [facility] C-Reactive Protein <3.0 <8.0 mg/L [facility] Comment: Test Performed at: [facility] [address] RICH COMER MD 08/23/2024 9:28 AM TOPOGRAPHIC COMPUTATOR 08/23/2024 9:29 AM TOPOGRAPHIC COMPUTATOR Julia Velasquez ARC CUTTER PLASMA [facility] LAB - CHEMISTRY ORDERABLES Final Result Performing Organization Address [facility] de Phone Number [facility] [id number] [place] [address] * (ABNORMAL) VITAMIN D 25-HYDROXY (08/23/2024 9:28 AM TOPOGRAPHIC COMPUTATOR) Pathologist [facility] Vitamin D, 25 Hydroxy 26(L) 30 - 100 ng/mL [facility] Comment: Vitamin D Status 25-OH Vitamin D: Deficiency: <20 ng/mL Insufficiency: 20 - 29 ng/mL Optimal: > or = 30 ng/mL For 25-OH Vitamin D testing on patients on D2-supplementation and patients for whom quantitation of D2 and D3 fractions is required, the QuestAssureD(TM) 25-OH VIT D, (D2,D3), LC/MS/MS is recommended: order code 76171 (patients >2yrs). See Note 1 Note 1 For additional information, please refer to http://education.Cascada Mobile/faq/MEP833 (This link is being provided for informational/ educational purposes only.) Test Performed at: [facility] [address] [place] [address] [place] [address] RICH COMER MD 08/23/2024 9:28 AM TOPOGRAPHIC COMPUTATOR 08/23/2024 9:29 AM TOPOGRAPHIC COMPUTATOR us Julia Velasquez ARC CUTTER PLASMA ARC-CARE ADMINISTRATIVE TECH LAB - CHEMISTRY ORDERABLES Final Result [facility] [address] [place] [address] * CBC WITH DIFFERENTIAL (08/23/2024 9:28 AM TOPOGRAPHIC COMPUTATOR) White Blood Cell Count 5.8 3.8 - [...] 0.5 % [facility] Comment: Test Performed at: [facility] [address] [place] [address] RICH COMER MD 08/23/2024 9:28 AM TOPOGRAPHIC COMPUTATOR 08/23/2024 9:29 AM TOPOGRAPHIC COMPUTATOR us Julia Velasquez ARC CUTTER PLASMA ARC-CARE ADMINISTRATIVE TECH LAB - HEMATOLOGY ORDERABLES Final Result [facility] [address] [place] [address] * COMPREHENSIVE METABOLIC PANEL (08/23/2024 9:28 AM TOPOGRAPHIC COMPUTATOR) Glucose 99 65 - 99 mg/dL [facility] [...] 46 U/L [facility] Comment: Test Performed at: [facility] [address] [facility] [place] [address] RICH COMER MD 08/23/2024 9:28 AM TOPOGRAPHIC COMPUTATOR 08/23/2024 9:29 AM TOPOGRAPHIC COMPUTATOR Julia Velasquez APRN-CARE ADMINISTRATIVE TECH LAB - CHEMISTRY ORDERABLES Final Result Performing Organization Address [facility] [place] [address] * HEPATITIS B SURFACE ANTIGEN W RFLX CONFIRMATION (08/23/2024 9:28 AM TOPOGRAPHIC COMPUTATOR) [facility] Hepatitis B Virus Surface Antigen NON-REACT TERESA NON-REACT TERESA [facility] Comment: For additional information, please refer to http://education.Clowdy/faq/FAB541 (This link is being provided for informational/ educational purposes only.) Test Performed at: [facility] [place] [address] RICH COMER MD Confirmation [facility] Comment: Test Performed at: [facility] [place] [address] RICH COMER MD 08/23/2024 9:28 AM TOPOGRAPHIC COMPUTATOR 08/23/2024 9:29 AM TOPOGRAPHIC COMPUTATOR Julia CAMARGO LAB - CHEMISTRY ORDERABLES Final Result Performing Organization Address [facility] [place] [address] * FOLATE (08/23/2024 9:28 AM TOPOGRAPHIC COMPUTATOR) [facility] Folate 10.4 ng/mL [facility] Comment: Reference Range Low: <3.4 Borderline: 3.4-5.4 Normal: >5.4 Test Performed at: [facility] [place] [address] RICH COMER MD 08/23/2024 9:28 AM TOPOGRAPHIC COMPUTATOR 08/23/2024 9:29 AM TOPOGRAPHIC COMPUTATOR Julia Velasquez APRN-MAR[facility] LAB - CHEMISTRY ORDERABLES Final Result Performing Organization Address [facility] Co de Phone Number [facility] [address] [place] [address] * VITAMIN B12 (08/23/2024 9:28 AM TOPOGRAPHIC COMPUTATOR) Vitamin B12 357 200 - 1100 pg/mL [...] pg/mL will have symptoms. Test Performed at: [facility] [address] [facility] [place] [address] RICH COMER MD 08/23/2024 9:28 AM TOPOGRAPHIC COMPUTATOR 08/23/2024 9:29 AM TOPOGRAPHIC COMPUTATOR Julia Velasquez ARC CUTTER PLASMA ARC-CARE ADMINISTRATIVE TECH LAB - CHEMISTRY ORDERABLES Final Result Performing Organization Address [facility] de Phone Number [facility] [address] [place] [address] from Last [address] [address] HEALTH CARE [facility] - [address] [place] [phone] Care Teams Human Resources Technician Relationship Specialty Start Date End Date None, Physician [address] [place] [address] PCP - General 03/28/24
--- OUTSIDE RECORDS SUMMARY | 2024-11-13 10:39 | XMS_ITS | Encounter Summary ---
Author Organization [facility] Address [address] [facility] [place] [address] Care Team Providers Care Office Machine Mechanic Name Role Phone None, Physician Primary Care Provider Unavailabl e Reason for Visit * Reason Onset Date Comments MEDICATION REFILL 01/10/2024 Encounter Details Date Type Department Care Team (Late st Contact Info) Description 01/10/2024 Refill [facility] GI [address] [place] [address], [place] [address] Adina Ramirez MD [address] [place] [address] [facility] [place] [address] MEDICATION REFILL Social History Tobacco Use Types Packs/Day Years Used Date Smoking Tobacco: Never Smokeless Tobacco: Former Chew Quit: 05/26/2018 Alcohol Use Standard Drinks/Week Comments Not Currently 0 (1 standard drink = 0.6 oz pur e alcohol) rarely Sex and Gender Information Value Date Recorded Sex Assigned at Male 08/23/2024 9:06 AM CONDENSER TESTER Legal Sex Male 1:33 PM CDT Gender Identity Male 08/23/2024 9:06 AM CONDENSER TESTER Sexual Orientation Straight 08/23/2024 9: 06 AM CONDENSER TESTER documented as of this encounter Functional Status [...] of Assessment Author No 07/06/2022 1:19 PM CONDENSER TESTER Hamida Gallardo RN * Does person have difficulty dressing/bathing? Answer Date of Assessment Author No 07/06/2022 1:19 PM CONDENSER TESTER Hamida Gallardo RN * Does person have difficulty doing errands alone? Answer Date of Assessment Author No 07/06/2022 1:19 PM CONDENSER TESTER Hamida Gallardo RN documented as of this encounter Mental Status * Does person have difficulty concentrating/remembering/making decisions? Answer Entry Date Author No 07/06/2022 1:19 PM CONDENSER TESTER Hamida Gallardo RN documented in this encounter Plan of Treatment Upcoming Encounters Date Type Department Care Team (Latest Contact Info) Description 04/17/2025 12:30 PM CDT Office Visit [facility] - GI [address] [place] [address] Mike Isaacs MD [address] [place] [phone] 07/02/2025 11:00 AM CONDENSER TESTER Hospital Encounter [facility] [address] [place] [phone] Mike Isaacs MD [address] [place] [phone] Surgery General 07/02/2025 11:00 AM CONDENSER TESTER - 07/02/2025 11:45 AM CONDENSER TESTER Surgery [facility] [address] [place] [phone] Mike Isaacs MD [address] [place] [phone] COLONOSCOPY DIAGNOSTIC Scheduled Procedures Name Priority Associated Diagnoses Date/Ti me COLONOSCOPY DIAGNOSTIC Crohn's disease of both small and large intestine with other complication (HCC) 07/02/2025 11:00 AM CONDENSER TESTER documented as of this encounter Goals Goal [...] on filedocumented in this encounter Care Teams Office Machine Mechanic Relationship Specialty Start Date End Date None, Physician [address] [place] [address] PCP - General 03/28/24 documented as of this encounter
--- OUTSIDE RECORDS SUMMARY | 2024-11-13 10:39 | XMS_ITS | Encounter Summary ---
Author Organization [facility] Address [address] [facility] [place] [address] Care Team Providers Care Traffic I Manager Name Role Phone None, Physician Primary Care Provider Unavailabl e Reason for Visit * Reason Onset Date Comments MEDICATION REFILL 05/25/2023 Encounter Details Date Type Department Care Team (Late st Contact Info) Description 05/25/2023 Refill [facility] - GI [address] [place] [address], [place] [address] Adina Ramirez MD [address] [place] [address] [facility] [place] [address] MEDICATION REFILL Social History Tobacco Use Types Packs/Day Years Used Date Smoking Tobacco: Never Smokeless Tobacco: Former Chew Quit: 05/26/2018 Alcohol Use Standard Drinks/Week Comments No 0 (1 standard drink = 0.6 oz pur e alcohol) Sex and Gender Information Value Date Recorded Sex Assigned at Male 08/23/2024 9:06 AM NURSING INFORMATICS CLINICAL ANALYST Legal Sex Male 1:33 PM CDT Gender Identity Male 08/23/2024 9:06 AM NURSING INFORMATICS CLINICAL ANALYST Sexual Orientation Straight 08/23/2024 9: 06 AM NURSING INFORMATICS CLINICAL ANALYST documented as of this encounter Functional Status [...] of Assessment Author No 07/06/2022 1:19 PM NURSING INFORMATICS CLINICAL ANALYST Hamida Gallardo RN * Does person have difficulty dressing/bathing? Answer Date of Assessment Author No 07/06/2022 1:19 PM NURSING INFORMATICS CLINICAL ANALYST Hamida Gallardo RN * Does person have difficulty doing errands alone? Answer Date of Assessment Author No 07/06/2022 1:19 PM NURSING INFORMATICS CLINICAL ANALYST Hamida Gallardo RN documented as of this encounter Mental Status * Does person have difficulty concentrating/remembering/making decisions? Answer Entry Date Author No 07/06/2022 1:19 PM NURSING INFORMATICS CLINICAL ANALYST Hamida Gallardo RN documented in this encounter Plan of Treatment Upcoming Encounters Date Type Department Care Team (Latest Contact Info) Description 04/17/2025 12:30 PM CDT Office Visit [facility] - GI [address] [place] [address] Mike Isaacs MD [address] [place] [phone] 07/02/2025 11:00 AM NURSING INFORMATICS CLINICAL ANALYST Hospital Encounter [facility] [address] [place] [phone] Mike Isaacs MD [address] [place] [phone] Surgery General 07/02/2025 11:00 AM NURSING INFORMATICS CLINICAL ANALYST - 07/02/2025 11:45 AM NURSING INFORMATICS CLINICAL ANALYST Surgery [facility] [address] [place] [phone] Mike Isaacs MD [address] [place] [phone] COLONOSCOPY DIAGNOSTIC Scheduled Procedures Name Priority Associated Diagnoses Date/Ti me COLONOSCOPY DIAGNOSTIC Crohn's disease of both small and large intestine with other complication (HCC) 07/02/2025 11:00 AM NURSING INFORMATICS CLINICAL ANALYST documented as of this encounter Goals Goal [...] on filedocumented in this encounter Care Teams Traffic I Manager Relationship Specialty Start Date End Date None, Physician [address] [place] [address] PCP - General 03/28/24 documented as of this encounter
--- NOTE | 2024-11-13 11:20 | WPDANESEPPF ---
Anes - Initial Pre Proc Eval Procedure: Operation Date: 11/13/24 12:00 Proposed Procedures p Cystoscopy, Right Ureteroscopy, Possible Right Retrograde Pyelogram, Possible Right Stone Extraction, Possible Right Stent Placement, Possible Holmium Laser - Samson Jones MD Date/Time: 11/13/24 11:20 Surgeon: Samson Jones MD Pre Op Diagnosis: right ureteral stone Patient Data Age: 39 Gender: M Height: Weight: Allergies Allergy/AdvReac Type Severity Reaction Status Date / Time No Known Allergies Allergy Verified 11/13/24 11:05 Home Medications Medication Instructions Recorded Confirmed Type risankizumab-rzaa 360 mg/2.4 mL 360 mg subcut .[id number] 10/31/24 10/31/24 History (150 mg/mL) subcut wearable injector (Skyrizi) hydrocodone 5 mg-acetaminophen 325 1 - 2 tablet PO Q6H PRN pain #20 11/01/24 Rx mg tablet tabs Patient hx anesthesia problems: none Family hx anesthesia problems: none Results Review: All pre-operative results and documents have been reviewed as part of the pre-operative evaluation. [facility] Social History Social History Smoking status: Never smoker Alcohol intake: never Substance use: never Do You Feel Safe in your Home?: Yes Lack of Transportation: No Lack of Food: Never True Current Housing: I Have Housing Concerned About Future Housing: No Difficulty Paying Gas/Electric Bills: No Difficulty Paying for Meds: No Currently Unemployed: No Education: Decline to Answer Difficulty w/ Childcare or Family Care: No Spiritual care concerns: No Anes - Eval Final PreProcedure Day of Procedure 11/13/24 11:20 Patient weight: normal Heart: regular rate and rhythm Lungs: clear to auscultation Airway: Mallampati scale class II Neurological: alert and oriented Last oral intake: >/= 8 hours ASA classification: II Emergent: no Anesthetic plan: proceed Anesthesia type and monitoring: general LMA and standard monitoring Results Review: All pre-operative results and documents have been reviewed as part of the pre-operative evaluation. Informed Consent: The patient's anesthetic plan and its attendant risks and benefits were discussed with the patient/family/POA. Questions were solicited and answers provided to the satisfaction of the patient/family/POA.
--- NOTE | 2024-11-13 11:21 | WPDANESEPPF ---
Anes - Initial Pre Proc Eval Procedure: Operation Date: 11/13/24 12:00 Proposed Procedures p Cystoscopy, Right Ureteroscopy, Possible Right Retrograde Pyelogram, Possible Right Stone Extraction, Possible Right Stent Placement, Possible Holmium Laser - Samson Jones MD Date/Time: 11/13/24 11:21 Surgeon: Samson Jones MD Pre Op Diagnosis: right ureteral stone Patient Data Age: 39 Gender: M Height: Weight: Allergies Allergy/AdvReac Type Severity Reaction Status Date / Time No Known Allergies Allergy Verified 11/13/24 11:05 Home Medications Medication Instructions Recorded Confirmed Type risankizumab-rzaa 360 mg/2.4 mL 360 mg subcut .[id number] 10/31/24 10/31/24 History (150 mg/mL) subcut wearable injector (Skyrizi) hydrocodone 5 mg-acetaminophen 325 1 - 2 tablet PO Q6H PRN pain #20 11/01/24 Rx mg tablet tabs Patient hx anesthesia problems: none Family hx anesthesia problems: none Results Review: All pre-operative results and documents have been reviewed as part of the pre-operative evaluation. [facility] Social History Social History Smoking status: Never smoker Alcohol intake: never Substance use: never Do You Feel Safe in your Home?: Yes Lack of Transportation: No Lack of Food: Never True Current Housing: I Have Housing Concerned About Future Housing: No Difficulty Paying Gas/Electric Bills: No Difficulty Paying for Meds: No Currently Unemployed: No Education: Decline to Answer Difficulty w/ Childcare or Family Care: No Spiritual care concerns: No Anes - Eval Final PreProcedure Day of Procedure 11/13/24 11:21 Patient weight: normal Heart: regular rate and rhythm Lungs: clear to auscultation Airway: Mallampati scale class II Neurological: alert and oriented Last oral intake: >/= 8 hours ASA classification: II Emergent: no Anesthetic plan: proceed Anesthesia type and monitoring: general LMA and standard monitoring Results Review: All pre-operative results and documents have been reviewed as part of the pre-operative evaluation. Informed Consent: The patient's anesthetic plan and its attendant risks and benefits were discussed with the patient/family/POA. Questions were solicited and answers provided to the satisfaction of the patient/family/POA.
[2024-11-13] MEDS: LACTATED RINGERS 1,000 ML 30 ML IV CONT (11:25)
--- NOTE | 2024-11-13 11:55 | WPDHPUPDATE1 ---
History and Physical Update Update Date/Time: 11/13/24 11:55 History and Physical has been reviewed, including an updated exam of the patient. There are NO changes in the patient's condition. Risks, benefits, and alternatives have been discussed and questions answered. Patient agrees to proceed with procedure.
[2024-11-13] MEDS: ceFAZolin 2 GM/D5W 50 ML 2 GM/50 ML BAG IVPB (12:09)
--- NOTE | 2024-11-13 12:46 | W.PM.PROC2 ---
Procedure Note - Detailed Date of Procedure 11/13/24 Pre-op Diagnosis Right renal stone Post-op Diagnosis Same Procedure Performed Cystoscopy, right ureteral stent removal, right ESWL Surgeon Samson Jones MD Anesthesia General Description of Procedure The patient was brought to the operative suite where he was placed in the supine position on the Dornier lithotripter table. Flexible cystoscopy was undertaken with a 16F flexible cystoscopy. There were no urethral strictures. The prostatic urethra estimated length was 1.0cm. There was no obstruction of prostatic urethra. The bladder mucosa was normal and there was a single, orthotopic ureteral orifice bilaterally. The tip of the indwelling stent was grasped and the stent was removed with ease. The patient was then repositioned in the supine position with the focal point of the lithotriptor on a 8mm right renal calculus. A total of 2500 shocks were delivered at a power setting of 4. There appeared to be good fragmentation of the stone. The patient tolerated the procedure well and was taken to the recovery room in good condition. Drains No Packing No Pathology None sent Complications No immediate complications Condition Stable
== END 2024-11-13 14:30 | disposition home or self-care (01) ==
PROVIDERS: Visit Provider Urology
PROC: (CPT 52352; principal; 2024-11-13 12:00)
DX: N20.0 Calculus of kidney (principal)
CPT/HCPCS: 50590; 74176; C1769; J0690; J2250; J3010; J7120

== ENCOUNTER 2024-12-03 12:58 | Outpatient (CLI) | payer OTHER, SELFPAY ==
--- NOTE | ~2024-12-03 | XR_ITS ---
Supine and upright views of the abdomen Clinical history: Renal stone COMPARISON: CT dated 11/13/2024, radiographs dated 11/01/2024 Findings: Bowel gas pattern is nonspecific. No evidence for obstruction or free air. Bowel suture ronni e noted projecting over the right kidney. No abnormal mass lesion or calcification is seen. Osseous s tructures are intact. Impression: No definite stones identified. Suture line projects over the right kidney. Reviewed, dictated and finalized at location . Impression: No definite stones identified. Suture line projects over the right kidney.
--- OUTSIDE RECORDS SUMMARY | 2024-12-03 13:54 | XMS_ITS | Encounter Summary ---
Author Organization [facility] Address [address] [place] [address] Care Team Providers Care Software Design Manager Name Role Phone None, Physician Primary Care Provider Unavailabl e Reason for Visit * Reason Onset Date Comments MEDICATION REFILL 01/10/2024 Encounter Details Date Type Department Care Team (Late st Contact Info) Description 01/10/2024 Refill [facility] [address] [place] [address], [place] [address] Adina Ramirez MD [address] [place] [address] [facility] [place] [address] MEDICATION REFILL Social History Tobacco Use Types Packs/Day Years Used Date Smoking Tobacco: Never Smokeless Tobacco: Former Chew Quit: 05/26/2018 Alcohol Use Standard Drinks/Week Comments Not Currently 0 (1 standard drink = 0.6 oz pur e alcohol) rarely Sex and Gender Information Value Date Recorded Sex Assigned at Male 08/23/2024 9:06 AM MECHANICAL ENGINEERING ADVISOR Legal Sex Male 1:33 PM CDT Gender Identity Male 08/23/2024 9:06 AM MECHANICAL ENGINEERING ADVISOR Sexual Orientation Straight 08/23/2024 9: 06 AM MECHANICAL ENGINEERING ADVISOR documented as of this encounter Functional Status [...] of Assessment Author No 07/06/2022 1:19 PM MECHANICAL ENGINEERING ADVISOR Hamida Gallardo RN * Does person have difficulty dressing/bathing? Answer Date of Assessment Author No 07/06/2022 1:19 PM MECHANICAL ENGINEERING ADVISOR Hamida Gallardo RN * Does person have difficulty doing errands alone? Answer Date of Assessment Author No 07/06/2022 1:19 PM MECHANICAL ENGINEERING ADVISOR Hamida Gallardo RN documented as of this encounter Mental Status * Does person have difficulty concentrating/remembering/making decisions? Answer Entry Date Author No 07/06/2022 1:19 PM MECHANICAL ENGINEERING ADVISOR Hamida Gallardo RN documented in this encounter Plan of Treatment Upcoming Encounters Date Type Department Care Team (Latest Contact Info) Description 04/17/2025 12:30 PM CDT Office Visit [facility] - [facility] [address] [place] [address] Mike Isaacs MD [address] [place] [phone] 07/02/2025 11:00 AM MECHANICAL ENGINEERING ADVISOR Hospital Encounter [facility] [address] [place] [phone] Mike Isaacs MD [address] [place] [phone] Surgery General 07/02/2025 11:00 AM MECHANICAL ENGINEERING ADVISOR - 07/02/2025 11:45 AM MECHANICAL ENGINEERING ADVISOR Surgery [facility] [address] [place] [phone] Mike Isaacs MD [address] [place] [phone] COLONOSCOPY DIAGNOSTIC Scheduled Procedures Name Priority Associated Diagnoses Date/Ti me COLONOSCOPY DIAGNOSTIC Crohn's disease of both small and large intestine with other complication (HCC) 07/02/2025 11:00 AM MECHANICAL ENGINEERING ADVISOR documented as of this encounter Goals Goal [...] on filedocumented in this encounter Care Teams Software Design Manager Relationship Specialty Start Date End Date None, Physician [address] [place] [address] PCP - General 03/28/24 documented as of this encounter
--- OUTSIDE RECORDS SUMMARY | 2024-12-03 13:54 | XMS_ITS | Clinical Summary ---
Author Organization [facility] Address [address] [place] [address] Care Team Providers Care Sales Analytics Manager Name Role Phone None, Physician Primary Care Provider Unavailabl e Source Comments [facility],non-owned Affiliates and Associated Physician Practices is amultiple site organization consisting of ambulatory clinics and hospital sitesin [place], [place], [place] and [place]. This disclosure is being madepursuant to the Care Everywhere program and may not contain all information available regarding this patient. Last updated 18.[facility] Allergies Active Allergy Reactions Criticality Noted Date [...] dissolve on the tongue Active [employer] [facility] For disposal of Vitamin B12 syringes 1 Each 1 02/02/20 22 Active hyoscyamine (Levsin SL) 0.125 MG sublingual tablet Dissolve 1 (one) tablet under the tongue every 4 hours as needed for Spasms 60 tablet 5 01/30/20 24 Active risankizumab-rzaa (Skyrizi) 360 MG/2.4ML SOCTIndications:Hebrew Teacher hn's disease with complication, unspecified gastrointestinal tract [...] Department Care Team Description 10/25/2024 Orders Only [facility] - [place] [address] Mike Isaacs MD 10/10/2024 12:30 PM CDT Office Visit [facility] [address], [place] [address] Mike Isaacs MD Crohn's disease of both small and large intestine with other complication (HCC) (Primary Dx); Diarrhea, unspecified type 10/10/2024 Patient Outreach [facility] [address] [place] [address] Julia Garcia RN 10/10/2024 Travel 09/20/2024 9:15 AM CDT Procedure visit [facility]fusion [address] [place] [address] Crohn's disease of both small and large intestine without complication 09/20/2024 Travel from Last 3 Months Immunizations Immunization Administration [...] Recorded Patient Health Questionnaire-2 Score 0 08/23/2024 [facility] [place] [facility] Occupat ional Health - Occupational Stress [...] any time in the past 12 m [address] [place], were you homeless or living in a halfway (including now)? No 08/23/2024 Education Answer Date Recorded What is the highest level of school you have completed or the highest degree you have received? 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, [place]) 08/23/2024 Sex and Gender Information Value Date Recorded Sex Assigned at Male 08/23/2024 9:06 AM SWEATBAND DRUMMER Legal Sex Male 1:33 PM CDT Gender Identity Male 08/23/2024 9:06 AM SWEATBAND DRUMMER Sexual Orientation Straight 08/23/2024 9: 06 AM SWEATBAND DRUMMER Last Filed Vital Signs Vital Sign Reading [...] 12:18 PM CDT Height 175.3 cm (5' 9) 10/10/2024 12:18 PM CDT Body Mass Index 22.33 10/10/2024 12:18 PM CDT Plan of Treatment Upcoming Encounters Date Type Department Care Team (Latest Contact Info) Description 04/17/2025 12:30 PM CDT Office Visit [facility] [address], [facility] [place] [address] [place] [address] [place] [phone] 07/02/2025 11:00 AM SWEATBAND DRUMMER Hospital Encounter [facility] [address] [place] [phone] Mike Isaacs MD [address] [place] [phone] Surgery General 07/02/2025 11:00 AM SWEATBAND DRUMMER - 07/02/2025 11:45 AM SWEATBAND DRUMMER Surgery [facility] [address] [place] [phone] Mike Isaacs MD [address] [place] [phone] COLONOSCOPY DIAGNOSTIC Scheduled Procedures Name Priority Associated Diagnoses Date/Ti me COLONOSCOPY DIAGNOSTIC Crohn's disease of both small and large intestine with other complication (HCC) 07/02/2025 11:00 AM SWEATBAND DRUMMER Health Maintenance Due Date Last Done Comments HIV SCREENING 2001 HEPATITIS C SCREENING 04/18/2004 ZOSTER VACCINE (1 of 2) 2005 HEPATITIS B VACCINE (3 of 3 - 3-dose series) 01/11/2010 11/16/2009, 08/21/1996 DTAP/TDAP/TD VACCINES (2 - Td or Tdap) 01/26/2011 01/26/2001 COVID-19 VACCINE (8 - Moderna risk 2023- season) 2024 05/17/2024, 04/14/2023, 03/08/2022, Additional history [...] On track( 025 12:09 PM CDT) Viola Sharp RN Note: Expected end date: Ongoing Interventions: Take all medications as prescribed Let your doctor know right away about any changes in your medications Insurance [facility] Care Teams Sales Analytics Manager Relationship Specialty Start Date End Date None, Physician [address] [place] [address] PCP - General 03/28/24
--- OUTSIDE RECORDS SUMMARY | 2024-12-03 13:54 | XMS_ITS | Encounter Summary ---
Author Organization [facility] Address [address] [place] [address] Care Team Providers Care Title I Math Tutor Name Role Phone None, Physician Primary Care Provider Unavailabl e Reason for Visit * Reason Onset Date Comments MEDICATION REFILL 05/25/2023 Encounter Details Date Type Department Care Team (Late st Contact Info) Description 05/25/2023 Refill [facility] [address] [place] [address], [place] [address] Adina Ramirez MD [address] [place] [address] [facility] [place] [address] MEDICATION REFILL Social History Tobacco Use Types Packs/Day Years Used Date Smoking Tobacco: Never Smokeless Tobacco: Former Chew Quit: 05/26/2018 Alcohol Use Standard Drinks/Week Comments No 0 (1 standard drink = 0.6 oz pur e alcohol) Sex and Gender Information Value Date Recorded Sex Assigned at Male 08/23/2024 9:06 AM PRESS TENDER LONG GOODS Legal Sex Male 1:33 PM CDT Gender Identity Male 08/23/2024 9:06 AM PRESS TENDER [employer] Sexual Orientation Straight 08/23/2024 9: 06 AM PRESS TENDER [employer] GOODS documented as of this encounter Functional Status [...] of Assessment Author No 07/06/2022 1:19 PM PRESS TENDER LONG GOODS Hamida Gallardo RN * Does person have difficulty dressing/bathing? Answer Date of Assessment Author No 07/06/2022 1:19 PM PRESS TENDER LONG GOODS Hamida Gallardo RN * Does person have difficulty doing errands alone? Answer Date of Assessment Author No 07/06/2022 1:19 PM PRESS TENDER LONG GOODS Hamida Gallardo RN documented as of this encounter Mental Status * Does person have difficulty concentrating/remembering/making decisions? Answer Entry Date Author No 07/06/2022 1:19 PM PRESS TENDER LONG GOODS Hamida Gallardo RN documented in this encounter Plan of Treatment Upcoming Encounters Date Type Department Care Team (Latest Contact Info) Description 04/17/2025 12:30 PM CDT Office Visit [facility] - [facility] [address] [place] [address] Mike Isaacs MD [address] [place] [phone] 07/02/2025 11:00 AM PRESS TENDER LONG GOODS Hospital Encounter [facility] [address] [place] [phone] Mike Isaacs MD [address] [place] [phone] Surgery General 07/02/2025 11:00 AM PRESS TENDER LONG GOODS - 07/02/2025 11:45 AM PRESS TENDER LONG GOODS Surgery [facility] [address] [place] [phone] Mike Isaacs MD [address] [place] [phone] COLONOSCOPY DIAGNOSTIC Scheduled Procedures Name Priority Associated Diagnoses Date/Ti me COLONOSCOPY DIAGNOSTIC Crohn's disease of both small and large intestine with other complication (HCC) 07/02/2025 11:00 AM PRESS TENDER LONG GOODS documented as of this encounter Goals Goal [...] on filedocumented in this encounter Care Teams Title I Math Tutor Relationship Specialty Start Date End Date None, Physician [address] [place] [address] PCP - General 03/28/24 documented as of this encounter
== END 2024-12-03 12:59 | disposition home or self-care (01) ==
PROVIDERS: Visit Provider Urology
DX: N20.0 Calculus of kidney (principal)
CPT/HCPCS: 74018